=== PATIENT | female | born 1955 | race Caucasian/White ===

== ENCOUNTER 2023-04-03 15:21 | Outpatient (OUT) | payer SELFPAY ==
--- NOTE | 2023-04-03 15:25 | US_ITS ---
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 Lobe size: 5.2 x 1.7 x 1.8 cm LEFT LOBE: Markedly heterogeneous echotexture with stable 19 x 11 x 12 mm TR 3 nodule within superior pole. Lobe size: 5.5 x 1.3 x 1.8 cm ISTHMUS: Markedly heterogeneous echotexture. No nodules or abnormal thickening. Thickness: 2 mm US/US thyroid IMPRESSION: 1. Stable markedly heterogeneous echotexture of the thyroid gland and stable bilateral TR 3 nodules. TR3 (mildly suspicious): > 1.5 cm, follow-up ultrasound in 1, 3, and 5 years. > 2.5 cm, fine needle aspiration. Electronically authenticated by: NAYA GONZALEZ Date: 04/04/2023 09:06
[2023-04-03 16:58] LABS: Free T4 0.92 ng/dL (0.76-1.46)
[2023-04-03 17:05] LABS: Free T3 2.12 pg/mL (2.18-3.98); Thyroid Stimulating Hormone 5.255 uIU/mL (0.358-3.740)
== END 2023-04-03 15:22 | disposition home or self-care (01) ==
LOC: US 15:21
PROVIDERS: PCP Internal Medicine; Visit Provider Internal Medicine
DX: E04.9 Nontoxic goiter, unspecified (principal); E06.3 Autoimmune thyroiditis
CPT/HCPCS: 36415; 76536; 84439; 84443; 84481

== ENCOUNTER 2024-03-17 16:19 | Outpatient (OUT) | payer BC, SELFPAY ==
--- OUTSIDE RECORDS SUMMARY | 2024-03-17 16:28 | XMS_ITS | CCD ---
Author Organization [facility] Team Providers Care Inspector Fabric Name Role Phone Unavailable Primary Care Provider Unavailabl e WILSON, CHE Referring Unavailable WILSON, CHE Referring Unavailable WILSON, CHE Referring Unavailable WILSON, CHE Referring Unavailable MCKENNA RAYO Admitting Unavailable MCKENNA RAYO Attending Unavailable LISA, DR ZIYAD Swan Consulting Unavailable MILA, DR MCKEON Primary Care Unavailable MCKENNA RAYO Consulting Unavailable AMRIK MAR Admitting Unavailable AMRIK MAR Attending Unavailable DR LINDA ZARAGOZA Primary Care Unavailable MILA, DR MCKEON Consulting Unavailable LISA, DR ZIYAD Swan Consulting Unavailable AMRIK MAR Consulting Unavailable ZAID AHMAD Admitting Unavailable AMRIK MAR Consulting Unavailable AMRIK MAR Attending DR LINDA Roe Primary Care Unavailable Linda Zaragoza DO Primary Care Provider [phone] Medications Current Medications Medication Drug Class(es) Dates Sig (Normalized) Sig (Original) [id number] 200 actuat albuterol 0.09 mg/actuat metered dose inhaler (1 source) beta2-Adrenergic Agonist take 2 puff(s) by inhalation four times daily as needed albuterol (PROVENTIL HFA;VENTOLIN HFA) 90 mcg/actuation inhaler albuterol sulfate HFA 90 mcg/actuation aerosol inhaler Inhale 2 puffs 4 times a day by inhalation route as needed. Active alendronic acid 35 mg oral tablet (2 sources) Bisphosphonate Start: 03-07-2024 alendronate (FOSAMAX) 35 mg tablet Indications: Age-related osteoporosis without current pathological fracture TAKE 1 TABLET BY MOUTH ONCE WEEKLY ON AN EMPTY STOMACH BEFORE BREAKFAST. REMAIN UPRIGHT FOR 30 MINUTES AND TAKE WITH 8 OUNCES OF WATER 12 tablet 3 03/07/2024 Active Start: 03-30-2023 End: 03-07-2024 alendronate (FOSAMAX) 35 mg tablet Indications: Age-related osteoporosis without current pathological fracture TAKE 1 TABLET BY MOUTH ONCE WEEKLY ON AN EMPTY STOMACH BEFORE BREAKFAST. REMAIN UPRIGHT FOR 30 MINUTES AND TAKE WITH 8 OUNCES OF WATER 12 tablet 3 03/30/2023 03/07/2024 Discontinued atorvastatin 10 mg oral tablet (1 source) HMG-CoA Reductase Inhibitor Start: 03-28-2023 take 1 tablet by mouth once daily atorvastatin (LIPITOR) 10 mg tablet Indications: Hyperlipidemia, unspecified hyperlipidemia type TAKE ONE TABLET BY MOUTH DAILY 90 tablet 3 03/28/2023 Active cholecalciferol 0.05 mg oral capsule (1 source) Vitamin D cholecalciferol, vitamin D3, 2,000 units capsule daily. Active levothyroxine sodium 0.1 mg oral tablet (1 source) l-Thyroxine take 1 tablet by mouth in the morning levothyroxine (SYNTHROID, LEVOTHROID) 100 MCG tablet Take 1 tablet (100 mcg total) by mouth in the morning. Active Problems Active Problems Problem Classification Problem Date Documented Date Episodic/Chronic Disorders of lipid metabolism (1 source) Hyperlipidemia; Translations: [Hyperlipidemia, unspecified] Onset: 06-28-2020 03-13-2022 Chronic Esophageal disorders (1 source) Gastroesophageal reflux disease; Translations: [Gastro-esophageal reflux disease without esophagitis] Onset: 03-13-2022 03-13-2022 Chronic Menopausal disorders (1 source) Menopausal symptom; Translations: [Menopausal and female climacteric states] Onset: 03-13-2022 03-13-2022 Chronic Osteoporosis (1 source) Senile osteoporosis; Translations: [Age-related osteoporosis without current pathological fracture] 03-06-2024 Chronic Thyroid disorders (10 sources) Autoimmune thyroiditis; Translations: [Nontoxic goiter, unspecified] Onset: 09-02-2018 Chronic Past or Other Problems Problem Classification Problem Date Documented Da te Episodic/Chronic Mood disorders (1 source) Mood disorders Onset: 03-26-2023 03-26-2023 Other bone disease and musculoskeletal deformities (1 source) Other specified disorders of bone density and structure, right thigh; Translations: [OTH D/O BONE DEN STRUCT RT THIGH] Onset: 05-27-2021 Episodic Other screening for suspected conditions (not mental disorders or infectious disease) (4 sources) Encounter for screening mammogram for malignant neoplasm of breast; Translations: [ENC SCR MAMMO MALIG NEOPLASM BREAST] Onset: 05-18-2021 Episodic Residual codes; unclassified (1 source) Asymptomatic menopausal state; Translations: [ASYMPTOMATIC MENOPAUSAL STATE] Onset: 05-27-2021 Episodic Results Test Name Value Interpretation Reference Range Facility FREE T3on 03-21-2022 FREE T3 2.10 pg/mlL Critically low 2.18-3.[address] [facility] Comment on above: Performed By: #### F T3, TSH #### [facility] [address] [place] [address] Dr. Den Dumont FREE T4on 03-21-2022 Free T4 [Mass/Vol] 0.98 ng/dL Normal 0.76-1.46 [facility] Comment on above: Performed By: #### F T4 #### [facility] [address] [place] [address] Dr. Den Dumont TSHon 03-21-2022 TSH 6.304 uIU/mL Critically high 0.358-3.740 [facility] Comment on above: Performed By: #### F T3, TSH #### [facility] [address] [place] [address] Dr. Den Dumont COMPREHENSIVE METABOLIC PANE Sky 07-04-2021 Albumin [Mass/Vol] 4.5 g/dL Normal 3.6-5.1 [facility] Comment on above: Performed By: #### 7 600, 15029, 11070, 79861 #### [facility] [address], [address] [place], [place] [id number] Diet Kitchen Cook: Teo Daugherty MD Albumin/Globulin [Mass ratio] 1.4 {ratio} Normal 1.0-2.5 [facility] Comment on above: Performed By: #### 7 600, 46056, 79167, 85904 #### [facility] [address], [address] [place] [id number] Diet Kitchen Cook: Teo Daugherty MD ALP [Catalytic activity/Vol] 88 U/L Normal 37-153 [facility] Comment on above: Performed By: #### 7 600, 38383, 71945, 36034 #### [facility] [place] [address] Diet Kitchen Cook: Teo Daugherty MD ALT [Catalytic activity/Vol] 17 U/L Normal 6-29 [facility] Comment on above: Performed By: #### 7 600, 50123, 04984, 34314 #### [facility] [place] [address] Diet Kitchen Cook: Teo Daugherty MD AST [Catalytic activity/Vol] 22 U/L Normal 10-35 [facility] Comment on above: Performed By: #### 7 600, 06723, 21004, 69654 #### [facility] [place] [address] Diet Kitchen Cook: Teo Daugherty MD Bilirubin [Mass/Vol] 0.5 mg/dL Normal 0.2-1.2 [facility] Comment on above: Performed By: #### 7 600, 53988, 59381, 67509 #### [facility] [place] [address] Diet Kitchen Cook: Teo Daugherty MD BUN/CREATININE RATIO NOT APPLICABLE Normal 6-22 [facility] Comment on above: Performed By: #### 7 600, 70812, 64851, 64673 #### [facility] [place] [address] Diet Kitchen Cook: Teo Daugherty MD Calcium [Mass/Vol] 9.7 mg/dL Normal 8.6-10.4 [facility] Comment on above: Performed By: #### 7 600, 17875, 41454, 12471 #### [facility] [place] [address] Diet Kitchen Cook: Teo Daugherty MD Chloride [Moles/Vol] 104 mmol/L Normal 98-110 [facility] Comment on above: Performed By: #### 7 600, 43847, 66888, 39953 #### [facility] of [address], [address] [place] [address] Diet Kitchen Cook: Teo Daugherty MD CO2 [Moles/Vol] 29 mmol/L Normal 20-32 [facility] Comment on above: Performed By: #### 7 600, 83153, 25732, 40092 #### [facility] of [address], [address] [place] [address] Diet Kitchen Cook: Teo Daugherty MD Creatinine [Mass/Vol] 0.95 mg/dL Normal 0.50-0.99 [facility] Comment on above: Result Comment: For patients >49 years of age, the reference limit for Creatinine is approximately 13% higher for people identified as -Wallisian. Performed By: #### 7 600, 84822, 42552, 18348 #### [facility] [address], [address] [place] [address] Diet Kitchen Cook: Teo Daugherty MD eGFR NON-AFR. GUATEMALAN 63 mL/min/1.73m2 Normal > OR = 60 [facility] Comment on above: Performed By: #### 7 600, 73121, 81654, 54317 #### [facility] [place] [address] Diet Kitchen Cook: Teo Daugherty MD GFR/1.73 sq M.predicted among blacks MDRD (S/P/Bld) [Vol rate/Area] 73 mL/min/{1.73_m2} Normal > OR = 60 [facility] Comment on above: Performed By: #### 7 600, 30484, 16326, 71010 #### [facility] of [address], [address] [place] [address] Diet Kitchen Cook: Teo Daugherty MD Globulin (S) [Mass/Vol] 3.3 g/dL Normal 1.9-3.7 [facility] Comment on above: Performed By: #### 7 600, 34599, 12838, 86150 #### [facility] [place] [address] Diet Kitchen Cook: Teo Daugherty MD Glucose [Mass/Vol] 93 mg/dL Normal 65-139 [facility] Comment on above: Result Comment: Non-fasting reference interval Performed By: #### 7 600, 32397, 08774, 42841 #### [facility] of [address], [address] [place] [address] Diet Kitchen Cook: Teo Daugherty MD Potassium [Moles/Vol] 4.1 mmol/L Normal 3.5-5.3 [facility] Comment on above: Performed By: #### 7 600, 10490, 21613, 00780 #### [facility] of [address], [address] [place] [address] Diet Kitchen Cook: Teo Daugherty MD Protein [Mass/Vol] 7.8 g/dL Normal 6.1-8.1 [facility] Comment on above: Performed By: #### 7 600, 42010, 26417, 48399 #### [facility] of [address], [address] [place] [address] Diet Kitchen Cook: Teo Daugherty MD Sodium [Moles/Vol] 140 mmol/L Normal 135-146 [facility] Comment on above: Performed By: #### 7 600, 37944, 98268, 78355 #### [facility] [place] [address] Diet Kitchen Cook: Teo Daugherty MD Urea nitrogen [Mass/Vol] 24 mg/dL Normal 7-25 [facility] Comment on above: Performed By: #### 7 600, 33698, 81298, 26555 #### [facility] [place] [address] Diet Kitchen Cook: Teo Daugherty MD LIPID PANEL, [facility] Cholesterol [Mass/Vol] 151 mg/dL Normal <200 [facility] Comment on above: Order Comment: FASTI NG:NO FASTING: NO Performed By: #### 7 600, 05913, 07680, 07281 #### [facility] of [address], [address] [place] [address] Diet Kitchen Cook: Teo Daugherty MD Cholesterol in HDL [Mass/Vol] 77 mg/dL Normal > OR = 50 [facility] Comment on above: Order Comment: FASTI NG:NO FASTING: NO Performed By: #### 7 600, 81766, 18247, 89702 #### [facility] [address], [address] [place] [address] Diet Kitchen Cook: Teo Daugherty MD Cholesterol in LDL [Mass/Vol] 56 mg/dL Normal [facility] Comment on above: Order Comment: FASTI NG:NO FASTING: NO Result Comment: Refe rence range: <100 Desirable range <100 mg/dL for primary prevention; <70 mg/dL for patients with CHD or diabetic patients with > or = 2 CHD risk factors. LDL-C is now calculated using the Lauren calculation, which is a validated novel method providing better accuracy than the Friedewald equation in the estimation of LDL-C. Bradley SS et al. SOHAIL. 2013;310(19): 1092-3319 (http://education.[employer].TiqIQ/faq/LRN511) Performed By: #### 7 600, 45525, 99447, 12819 #### [facility] [address], [address] [place] [address] Diet Kitchen Cook: Teo Daugherty MD Cholesterol.total/C holesterol in HDL [Mass ratio] 2.0 {ratio} Normal <5.0 [facility] Comment on above: Order Comment: FASTI NG:NO FASTING: NO Performed By: #### 7 600, 77392, 55543, 63983 #### [facility] [address], [address] [place] [address] Diet Kitchen Cook: Teo Daugherty MD NON HDL CHOLESTEROL 74 mg/dL (calc) Normal <130 [facility] Comment on above: Order Comment: FASTI NG:NO FASTING: NO Result Comment: For patients with diabetes plus 1 major ASCVD risk factor, treating to a non-HDL-C goal of <100 mg/dL (LDL-C of <70 mg/dL) is considered a therapeutic option. Performed By: #### 7 600, 32238, 04258, 76005 #### [facility] [address], [address] [place] [address] Diet Kitchen Cook: Teo Daugherty MD Triglyceride [Mass/Vol] 93 mg/dL Normal <150 [facility] Comment on above: Order Comment: FASTI NG:NO FASTING: NO Performed By: #### 7 600, 23820, 29340, 00729 #### [facility] [address], [address] [place] [address] Diet Kitchen Cook: Teo Daugherty MD TSH+FREE T4on 07-04-2021 Free T4 [Mass/Vol] 1.2 ng/dL Normal 0.8-1.8 [facility] Comment on above: Performed By: #### 7 600, 19146, 09506, 58141 #### [facility] [address], [address] [place] [address] Diet Kitchen Cook: Teo Daugherty MD TSH Qn 5.50 m[IU]/L High 0.40-4.50 [facility] Comment on above: Performed By: #### 7 600, 49755, 74616, 06332 #### [facility] [place] [address] Diet Kitchen Cook: Teo Daugherty MD VITAMIN D,25-OH,TOTAL,IAon 0 07-04-2021 VITAMIN D,25-OH,TOTAL,IA 30 ng/mL Normal 30-100 [facility] Comment on above: Result Comment: Geno min D Status 25-OH Vitamin D: Deficiency: <20 ng/mL Insufficiency: 20 - 29 ng/mL Optimal: > or = 30 ng/mL For 25-OH Vitamin D testing on patients on D2-supplementation and patients for whom quantitation of D2 and D3 fractions is required, the QuestAssureD(TM) 25-OH VIT D, (D2,D3), LC/MS/MS is recommended: order code [id number] (patients >2yrs). See Note 1 Note 1 For additional information, please refer to http://education.[employer].TiqIQ/faq/POM843 (This link is being provided for informational/ educational purposes only.) Performed By: #### 7 600, 53222, 36165, 20988 #### [facility] [address] [facility], [address] [place] [address] Diet Kitchen Cook: Teo Daugherty MD MG MAMM SCREEN 3D STEPH CADon 05-18-2021 MG MAMM SCREEN 3D STEPH CAD Patient: JOLEEN AHLL Exam Date: 05/18/2021 : 1955 Gender:F Ordering : DR. MCKENNA RAYO . Admission #: [id number] Family : DR LINDA ZARAGOZA Order #: [id number] CLICK HERE TO VIEW EXAM RADIOLOGY REPORT PROCEDURE: MAMMOGRAM SCREENING 3D BILATERAL CAD COMPARISON: MG MAMM SCREEN STEPH W CAD, 05/13/2019. MG MAMM SCREEN STEPH W CAD, 05/16/2020. INDICATIONS: Screening mammography Calculator Name NCI Breast Cancer Risk Assessment Tool 5 Year Breast Cancer Risk 2.30% Lifetime Breast Cancer Risk 8.60% Personal Breast Cancer No Personal Ovarian Cancer No Treatments None Family Cancers None LOCATION: [facility] BREAST COMPOSITION: Almost entirely fatty. FINDINGS: DIAGNOSTIC CATEGORY 1--NEGATIVE. RIGHT BREAST: No significant suspicious finding. No significant change has occurred. LEFT BREAST: No significant suspicious finding. No significant change has occurred. RECOMMENDATIONS: ROUTINE MAMMOGRAM AND CLINICAL EVALUATION IN 12 MONTHS. PLEASE NOTE: A NORMAL MAMMOGRAM DOES NOT EXCLUDE THE POSSIBILITY OF BREAST CANCER. A CLINICALLY SUSPICIOUS PALPABLE LUMP SHOULD BE BIOPSIED. Dictated by: Ziyad Armenta M.D. on 05/18/2021 at 15:03 Approved by: Ziyad Armenta M.D. on 05/18/2021 at 15:16 Normal [facility] XR DEXA BONE DENSITYon 05-18 XR DEXA BONE DENSITY EXAMINATION: XR DEXA BONE DENSITY, 05/18/2021 7:53 AM EST HISTORY: Menopause present COMPARISON: DEXA bone densitometry 05/13/2019 TECHNIQUE: Dual-energy X-ray absorptiometry (DEXA) bone density study performed for the axial skeleton. FINDINGS: SPINE ANALYSIS: Average bone mineral density is 1.115 g/cm2. T-score (standard deviation relative to young adult mean): -0.7 . +12.8% change since prior study. HIP ANALYSIS: Lowest bone mineral density is within the right femoral trochanter, 0.589 g/cm2. T-score (standard deviation relative to young adult mean): -2.3 . +8.2% change since prior study. IMPRESSION: World Asael Organization Classification: Osteopenia - Moderate Fracture Risk Electronically authenticated by: ZIYAD ARMENTA Date: 2021-05-18 08:21 Normal [facility] FREE T3on 04-09-2021 FREE T3 2.44 pg/mlL Critically low 2.77-5.27 [facility] Comment on above: Performed By: #### F T3, TSH #### [facility] [address] [place] [address] [address] Den Dumont FREE T4on 04-09-2021 Free T4 [Mass/Vol] 0.79 ng/dL Normal 0.78-2.19 [facility] Comment on above: Performed By: #### F T4 #### [facility] [address] [place] [address] [address] Den Dumont TSHon 04-09-2021 TSH 8.919 uIU/mL Critically high 0.470-4.680 [facility] Comment on above: Performed By: #### F T3, TSH #### [facility] [address] [place] [address] [address] Den Dumont TSH RANGE SEE BELOW Normal [facility] Comment on above: Result Comment: <0.3 4 UIU/ml HYPERTHYROID 0.34-5.60 UIU/ml EUTHYROID >5.60 UIU/ml HYPOTHYROID Performed By: #### F T3, TSH #### [facility] [address] [place] [address] Dr. Den Dumont US THYROIDon 04-09-2021 US THYROID EXAMINATION: US THYROID HISTORY: Simple goiter COMPARISON: Ultrasound thyroid 02/23/2019 FINDINGS: RIGHT LOBE: Hypervascular markedly heterogeneous thyroid lobe. On the anterior margin is a 19 x 5 x 9 mm TR 3 nodule which does not convincingly represent a new nodule, likely better definition of the heterogeneous area. Lobe size: 5.0 x 1.8 x 2.1 cm LEFT LOBE: Hypervascular markedly heterogeneous thyroid lobe. Stable 16 x 10 x 12 mm TR 3 nodule. Lobe size: 4.6 x 1.2 x 1.6 cm ISTHMUS: Normal size and echotexture. Thickness: 2 mm IMPRESSION: 1. Grossly stable markedly heterogeneous thyroid gland with grossly stable bilateral TR 3 nodules. TR 3: The [employer] TI-RADS committee's white paper recommendations for thyroid lesions classified as TR3 (mildly suspicious) are listed below: > 1.5 cm. Follow-up ultrasound in 1, 3, and 5 years. > 2.5 cm. FNA. J. Am Cornell Radiol 2017;14:587-595. Electronically authenticated by: ZIYAD ARMENTA Date: 2021-04-09 16:19 Normal [facility] [id number] 04-30-2020 SARS-CoV-2 Detected Abnormal Not Detected [facility] Comment on above: Result Comment: (NOT E) Testing was performed using the Aptima SARS-CoV-2 assay. This nucleic acid amplification test was developed and its performance characteristics determined by [employer]. Nucleic acid amplification tests include PCR and TMA. This test has not been FDA cleared or approved. This test has been authorized by FDA under an Emergency Use Authorization (EUA). This test is only authorized for the duration of time the declaration that circumstances exist justifying the authorization of the emergency use of in vitro diagnostic tests for detection of SARS-CoV-2 virus and/or diagnosis of COVID-19 infection under section 564(b)(1) of the Act, 21 U.S.C. 360bbb-3(b) (1), unless the authorization is terminated or revoked sooner. When diagnostic testing is negative, the possibility of a false negative result should be considered in the context of a patient's recent exposures and the presence of clinical signs and symptoms consistent with COVID-19. An individual without symptoms of COVID- 19 and who is not shedding SARS-CoV-2 virus would expect to have a negative (not detected) result in this assay. Performed At: = [facility] [address] [id number] Adrián Paige MD Ph:[phone] Performed By: #### A COV #### [facility] [address] [place] [address] Chute Tender: Xander Simental MD [id number] 03-18-2020 SARS-CoV-2 Not Detected Normal Not Detected [facility] Comment on above: Result Comment: (NOT E) This nucleic acid amplification test was developed and its performance characteristics determined by [employer]. Nucleic acid amplification tests include PCR and TMA. This test has not been FDA cleared or approved. This test has been authorized by FDA under an Emergency Use Authorization (EUA). This test is only authorized for the duration of time the declaration that circumstances exist justifying the authorization of the emergency use of in vitro diagnostic tests for detection of SARS-CoV-2 virus and/or diagnosis of COVID-19 infection under section 564(b)(1) of the Act, 21 U.S.C. 360bbb-3(b) (1), unless the authorization is terminated or revoked sooner. When diagnostic testing is negative, the possibility of a false negative result should be considered in the context of a patient's recent exposures and the presence of clinical signs and symptoms consistent with COVID-19. An individual without symptoms of COVID- 19 and who is not shedding SARS-CoV-2 virus would expect to have a negative (not detected) result in this assay. Performed At: [facility] [address] [place], [place] [id number] Cristal William [facility] Ph:[phone] Performed By: #### A COV #### [facility] [address] [place] [address] Chute Tender: Xander Simental MD [id number] 03-06-2020 SARS-CoV-2 Not Detected Normal Not Detected [facility] Comment on above: Result Comment: (NOT E) This nucleic acid amplification test was developed and its performance characteristics determined by [employer]. Nucleic acid amplification tests include PCR and TMA. This test has not been FDA cleared or approved. This test has been authorized by FDA under an Emergency Use Authorization (EUA). This test is only authorized for the duration of time the declaration that circumstances exist justifying the authorization of the emergency use of in vitro diagnostic tests for detection of SARS-CoV-2 virus and/or diagnosis of COVID-19 infection under section 564(b)(1) of the Act, 21 U.S.C. 360bbb-3(b) (1), unless the authorization is terminated or revoked sooner. When diagnostic testing is negative, the possibility of a false negative result should be considered in the context of a patient's recent exposures and the presence of clinical signs and symptoms consistent with COVID-19. An individual without symptoms of COVID- 19 and who is not shedding SARS-CoV-2 virus would expect to have a negative (not detected) result in this assay. Performed At: [facility] [address] [facility] [place] [id number] Miguelito Luna MD Ph:[phone] Performed By: #### A COV #### [facility] [address] [place], [place] [id number] Chute Tender: Xander Simental MD Encounters Encounter Date Encounter Type Care Provider Facility Start: 03-06-2024 End: 03-07-2024 Refill Linda Zaragoza DO Work Phone: [facility] Comment on above: Age-related osteopor osis without current pathological fracture Start: 03-21-2022 End: 03-22-2022 ambulatory [facility] Facility:[facility]1 Start: 05-18-2021 End: 05-19-2021 ambulatory MCKENNACheryl RAYO Facility:[facility] Start: 04-09-2021 End: 04-10-2021 ambulatory [facility] Facility:[facility] Start: 04-27-2020 End: 04-28-2020 Patient encounter procedure RAYMOND WILSON [facility] Start: 04-27-2020 End: 04-27-2020 Subsequent hospital visit by physician [facility] Start: 04-12-2020 End: 04-13-2020 Patient encounter procedure RAYMOND WILSON [facility] Start: 04-12-2020 End: 04-12-2020 Subsequent hospital visit by physician [facility] Start: 03-15-2020 End: 03-15-2020 Patient encounter procedure RAYMOND WILSON [facility] Start: 03-14-2020 End: 03-14-2020 Subsequent hospital visit by physician [facility] Start: 03-03-2020 End: 03-04-2020 Patient encounter procedure RAYMOND WILSON [facility] Start: 03-03-2020 End: 03-03-2020 Subsequent hospital visit by physician [facility] Procedures Date Procedure Procedure Detail Performing Clinician Start: 03-26-2023 Adult depression screening assessment Linda Zaragoza DO Work Phone: Start: 04-27-2020 COVID-19 AMBULATORY EB WILSON Start: 04-12-2020 COVID-19 AMBULATORY EB S KATIE Start: 03-03-2020 COVID-19 AMBULATORY EB S KAITE Plan of Treatment Date Care Activity Detail Author Start: 11-07-2025 DTaP,Tdap and Td Vaccines (2 - Td or Tdap) DTaP,Tdap and Td Vaccines (2 - Td or Tdap) [facility] Start: 03-26-2024 Adult BMI Screening Adult BMI Screen ing [facility] Start: 03-26-2024 Depression Screening Depression Scre ening [facility] Start: 03-26-2024 Fall Risk Screening Fall Risk Screen ing [facility] Start: 03-26-2024 Tobacco Screening Tobacco Screening [facility] Start: 01-25-2024 COVID-19 Vaccine ( season) COVID-19 Vaccine ( season) [facility] Start: 01-25-2024 Influenza vaccination Influenza Vacc ine [facility] Start: 01-25-2020 Influenza vaccination Flu vaccine (# 1) [place] Start: 09-24-2005 Screening for malign ant neoplasm of breast Breast cancer screen [place] Start: 09-24-2005 Screening for malign ant neoplasm of colon Colon cancer screen [place] Start: 09-24-2005 Shingles Vaccine (1 of 2) Shingles Vaccine (1 of 2) [place] Start: 1995 Lipid panel Lipid screen [place], [place] Start: 09-24-1976 Screening for malign ant neoplasm of cervix Cervical cancer [place] Start: 09-24-1974 DTaP/Tdap/Td vaccine (1 - Tdap) DTaP/Tdap/Td vaccine (1 - Tdap) [place] Start: 09-24-1973 Adult BMI Follow Up Plan Adult BMI Follow Up Plan [facility] Start: 09-24-1970 [facility] [place] [place] Start: 1955 Hepatitis C screening Hepatitis C sc [place]en [place] End: 03-03-2020 Covid-19 Ambulatory Covid-19 Ambulatory Lab Routine Once for 1 Occurrences starting 03/03/2020 until 03/03/2020 [place] Comment on above: Once for 1 Occurrenc es starting 03/03/2020 until 03/03/2020 Covid-19 Ambulatory [place] End: 04-12-2020 Covid-19 Ambulatory Covid-19 Ambulatory Lab Routine Once for 1 Occurrences starting 04/12/2020 until 04/12/2020 [place] Comment on above: Once for 1 Occurrenc es starting 04/12/2020 until 04/12/2020 End: 04-27-2020 Covid-19 Ambulatory Covid-19 Ambulatory Lab Routine Once for 1 Occurrences starting 04/27/2020 until 04/27/2020 [place] Comment on above: Once for 1 Occurrenc es starting 04/27/2020 until 04/27/2020 Immunizations Immunization Date Immunization Notes Care Provider Dick ortega 01-09-2023 influenza virus vaccine, unspecified formulation Linda Shaniquahas DO Work Phone: [facility] 01-23-2022 Influenza, High-dose , Quadrivalent Linda Shaniquahas DO Work Phone: [facility] 10-10-2021 Pneumococcal Conjuga te 20-valent Linda Mcgovernhas DO Work Phone: [facility] 02-28-2021 COVID-19, mRNA, LNP- S, PF, 100mcg/0.5mL Dose Linda Shaniquahas DO Work Phone: [facility] 01-18-2021 Influenza, High-dose , Quadrivalent Linda Shaniquahas DO Work Phone: [facility] 07-02-2019 zoster vaccine recombinant Linda Zaragoza DO Work Phone: [facility] 03-29-2019 zoster vaccine recombinant Linda Zaragoza DO Work Phone: [facility] 03-23-2019 influenza, high dose seasonal, preservative-free Linda Zaragoza DO Work Phone: [facility] 03-03-2019 Seasonal, quadrivale nt, recombinant, injectable influenza vaccine, preservative free Linda Zaragoza DO Work Phone: [facility] 02-23-2018 influenza, injectabl e, quadrivalent, contains preservative Linda Martinezs DO Work Phone: [facility] 02-23-2017 influenza, injectabl e, quadrivalent, contains preservative Linda Martinezs DO Work Phone: [facility] 03-09-2016 influenza A monovale nt (H5N1), adjuvanted, National stockpile 2012 Linda Martinezs DO Work Phone: [facility] 11-12-2015 zoster vaccine, live Linda hauser DO Work Phone: [facility] 11-08-2015 tetanus toxoid, redu francisca diphtheria toxoid, and acellular pertussis vaccine, adsorbed Linda Zaragoza DO Work Phone: [facility] Payers Date Payer Category Payer Unknown YANE YOST SS (PPO) [id number] 2022-Present [phone] [address] [place] [address] [id number] 2014 Unknown [id number] 1959 Private Health Insurance [id number] 1959 Unknown [id number] 1959 Unknown [id number] 1955 Unknown [id number] 175 1955 Unknown [id number] 175 1955 Unknown [id number]. 175 1955 Unknown [id number] 175 1955 Unknown [id number] 1955 Unknown [id number]. 593 1955 Unknown [id number]. 593 Social History Date Type Detail Facility Tobacco smoking status NHIS Unknown if ever smoked [place], [place] Start: 1955 Sex Assigned At Not on file [place] Start: 03-20-2022 Tobacco smoking status DEIS Never smoked tobacco [facility] Start: 03-20-2022 Tobacco use and exposure Smokeless tobacco non-user [facility] Start: 03-26-2023 Alcoholic beverage intake Current drinker of alcohol (finding) [facility] Start: 11-04-2018 End: 03-26-2023 History of Social function [facility] Start: 11-04-2018 End: 03-26-2023 Tobacco use panel [facility] Adolescent depressio n screening assessment 0 [facility] Start: 03-26-2023 Alcohol Comment Occasional [facility] NEGATED: Highlighted rowStart: NINF History of tobacco use Passive smoker [facility] Medical Equipment Procedure Code Equipment Code Equipment Origin al Text Equipment Identifier Dates Lens Iol Ultrase rt 21.0d - [id number] - [id number] Start: 04-05-2021 Lens Iol Ultrase rt 21.5d - [id number] - [id number] Start: 04-17-2021 Evaluation note Note Date & Type Note Facility Evaluation note Diagnosis Age-related osteoporosis without current pathological fracture documented in this encounter [facility] Instructions Note Date & Type Note Facility Instructions Not on filedocumented in this en counter [facility] Summary Purpose Family History No Family History Records FoundNo Family History Records FoundNo Family History Records Found Advance Directives No Advanced Directives Records FoundNo Advanced Directives Records FoundNo Advanced Directives Records Found Additional Source Comments INFORMATION SOURCE (unrecogn ized section and content) DATE CREATED AUTHOR 04/30/2020 [facility] DATE CREATED AUTHOR AUTHOR'S ORGANIZ ATION 07/04/2021 [facility] DATE CREATED AUTHOR AUTHOR'S ORGANIZ ATION 03/24/2022 [facility] Reason for Visit (unrecogniz ed section and content) Reason Comments Med Refill Care Teams (unrecognized sec tion and content) Inspector Fabric Relationship Specialty Start Date End Date Linda Zaragoza DO [address] [place] [address] PCP - General Internal Medicine 04/05/21 FOR RECORDS PERTAINING TO PATIENTS WHO ARE OR HAVE BEEN ENROLLED IN A CHEMICAL DEPENDENCY/SUBSTANCEABUSE PROGRAM, SOME INFORMATION MAY BE OMITTED. This clinical summary was aggregated from multiple sources. Caution should be exercised in using it in the provision of clinical care. This summary normalizes information from multiple sources, and as a consequence, information in this document may materially change the coding, format and clinical context of patient data. In addition, data may be omitted in some cases. CLINICAL DECISIONS SHOULD BE BASED ON THE PRIMARY CLINICAL RECORDS. [employer] provides no warranty or guarantee of the accuracy or completeness of information in this document.
[2024-03-17 17:39] LABS: Free T3 2.22 pg/mL (2.18-3.98); Thyroid Stimulating Hormone 6.719 uIU/mL (0.358-3.740)
[2024-03-17 17:59] LABS: Free T4 0.89 ng/dL (0.76-1.46)
== END 2024-03-17 16:20 | disposition home or self-care (01) ==
PROVIDERS: PCP Internal Medicine; Visit Provider Internal Medicine
DX: E04.9 Nontoxic goiter, unspecified (principal); E06.3 Autoimmune thyroiditis; E04.2 Nontoxic multinodular goiter; E55.9 Vitamin D deficiency, unspecified
CPT/HCPCS: 36415; 82306; 84439; 84443; 84481

== ENCOUNTER 2025-03-30 16:17 | Outpatient (OUT) | payer BC, SELFPAY ==
--- OUTSIDE RECORDS SUMMARY | 2025-03-30 16:23 | XMS_ITS | Clinical Summary ---
Author Organization [facility] Address [address] [place] [address] Care Team Providers Care Veterinary Dentist Name Role Phone Gutierrez Vergara MD Primary Care Provider [phone] Allergies No known active allergies Medications MedicationSigDispense QuantityRefillsLast FilledStart DateEnd DateStatus levothyroxine (Tirosint) 88 MCG capsule Take by mouth Daily before mealsActive levothyroxine (Synthroid, Levoxyl) 88 MCG tablet Indications:Autoimmune thyroiditisTake 1 tablet (88 mcg) by mouth in the morning. on an empty stomach. 360 tablet 5Active Active Problems ProblemNoted DateDiagnosed DateNontoxic goiter, wyqrprzxpqx71/31/2024utoimmune zdjgbggvdyy05/31/2024Nontoxic multinodular tzrxgc5603/25/2024 Family History Medical HistoryRelationNameCommentsHypertensionMotherHyperthyroidismMother RelationNameStatusCommentsBrotherx 1AliveFatherDeceasedMotherAliveSisterx 2Alive Social History Tobacco UseTypesPacks/DayYears UsedDateSmoking Tobacco: NeverSmokeless Tobacco: Never Tobacco Cessation:Counseling Given: Not Answered Alcohol UseStandard Drinks/WeekCommentsNever0 (1 standard drink = 0.6 oz pure alcohol)CommentsUnknownSex and Gender InformationValueDate RecordedSex Assigned at BirthNot on fileLegal RebDktmfa12/04/2024 9:16 AM EDTGender Identity Not on fileSexual OrientationNot on file Last Filed Vital Signs Vital SignReadingTime TakenCommentsBlood Xqgnotgf388/7204/12/2024 9:04 AM EST Haccq736304/12/2024 9:04 AM ESTTemperature--Respiratory Eixf161406/12/2023 9:04 AM ESTOxygen Omtbftzzqi61%04/14/2023 8:55 AM ESTInhaled Oxygen Concentration-- Jeyvav58.6 kg (182 lb)04/12/2024 9:04 AM YVJSmivoq837.6 cm (5' 6 )04/12/2024 9:04 AM ESTBody Mass Index29.38106/12/2023 9:04 AM EST Plan of Treatment DateTypeDepartmentCare Team (Latest Contact Info)Mizpbxosxde50/17/2025 9:00 AM ESTOffice Visit [facility] [address] [place] [address] Kranthi Lacy MD [address] [place] [address] Health MaintenanceDue DateLast DoneCommentsCT Ijskdoweidbr61/02/1956olonoscopy 1955olorectal Cancer Nzgjbmwjp77/02/1956FIT-DNA1955FIT1955 FOBT1955Aopejohlqyzbo62/02/5466Fbaxskhdh39/02/1996COVID-19 Vaccine ( season), 02/28/2021Influenza Vaccine (#1)2025 02/08/2024, 01/09/2023, 01/23/2022, Additional history existsPneumococcal Vaccine: 65+ IamumTjqwlkbwy16/18/2022 Insurance Care Teams Team MemberRelationshipSpecialtyStart DateEnd Date Gutierrez Vergara MD PCP - GeneralInternal Nnkuwrxr14/13/24
--- OUTSIDE RECORDS SUMMARY | 2025-03-30 16:23 | XMS_ITS | Encounter Summary ---
Author Organization [facility] tem Address [id number] [address] [place] [address] Care Team Providers Care Machine Stoppage Frequency Checker Name Role Phone Gutierrez Vergara DO Primary Care Provider [phone] Reason for Visit * ReasonCommentsMed Refill Encounter Details DateTypeDepartmentCare Team (Latest Contact Info)Vhlserqyule29/29/2025Refill [facility] [address] [place] [phone] Gutierrez Vergara DO [address] [place] [address] Hyperlipidemia, unspecified hyperlipidemia type Social History Tobacco UseTypesPacks/DayYears UsedDateSmoking Tobacco: NeverPassive Smoke Exposure: NeverSmokeless Tobacco: NeverAlcohol UseStandard Drinks/WeekComments Yes0 (1 standard drink = 0.6 oz pure alcohol)OccasionalPHQ-2AnswerDate Recorded Total Gsnxs233/30/2024ChildcareAnswerDate VazjqunsBlcofmrrjRyncjrf44/12/2019 EmploymentAnswerDate LxxufdfaIknzwbbrdvYvjkmef37/12/2019Hunger ScreeningAnswer Date RecordedWithin the past 12 months we worried whether our food would run out before we got money to buy more.Never True05/24/2024Within the past 12 months the food we bought just didn't last and we didn't have money to get more.Never True4CommentsNoSex and Gender InformationValueDate RecordedSex Assigned at BirthNot on fileLegal DiuRuxitk79/06/2015 11:33 AM EDTGender IdentityNot on fileSexual OrientationNot on filedocumented as of this encounter Plan of Treatment DateTypeDepartmentCare Team (Latest Contact Info)Kocweoerief34/15/2025 10:30 AM ESTAppointment [facility] [address] [place] [phone] 04/09/2025 11:30 AM ESTAppointment [facility] [address] [place] [phone] documented as of this encounter Visit Diagnoses Diagnosis Hyperlipidemia, unspecified hyperlipidemia type documented in this encounter Additional Health Concerns AssessmentNoted TimePHQ-9 Depression Total Score: 2:01 PM EST documented as of this encounter Care Teams Team MemberRelationshipSpecialtyStart DateEnd Date Gutierrez Vergara DO [address] [place] [address] PCP - GeneralInternal Xahbfbgc45/11/21documented as of this encounter
--- OUTSIDE RECORDS SUMMARY | 2025-03-30 16:23 | XMS_ITS | Continuity of Care Document ---
Author [facility] Address [address] [place] [address] Problems Unknown Problems Results Test Result Date/Time Value / Unit Interp. Refere nce Range SARS-CoV-2 (COVID-19), RT-PC R/TMA[[id number]] Collected: 04/02/2021 03:35 PM Specimen Received: 04/03/2021 07:04 PM Source: [facility] SARS-CoV-2 INTERPRETATION [[id number]] 04/04/2021 01:58 A M Negative See QsalHMFY-EoC-1 RNA NOT DETECTEDNegative results do not preclude SARS-CoV-2 infection and should notbe used as the sole basis for patient management decisions. Negativeresults must be combined with clinical observations, patient history,and epidemiological information. Optimum specimen types and timingfor peak viral levels during infections caused by SARS-CoV-2 have notbeen determined. Collection of multiple specimens or types ofspecimens may be necessary to detect virus. Improper specimencollectionand handling, sequence variability under primers/probes,or organism present below the limit of detec tion may lead to falsenegative results. Positive and negative predictive values oftesting are highly dependent on prevalence. False negative testresults are more likely when prevalence is high.SOURCE [[id number]]04/04/2021 01:58 AM NASOPHARYNGEALNote: Methodology is Tutu Juwan Real-Time RT-PCR. The expected result or reference range is NEGATIVE (Not Detected). For more information regarding COVID-19 testing to include clinicalinformation, methodology detail, intended use, FDA authorization andrecommended fact sheets for patients or healthcare providers, see [employer] Announcement: SARS-CoV-2 (COVID-19) by NAAT at URL below (note,fact sheets are provided by method given in report:[email or web address]/ Alternatively, see downloadable PDF fact sheet at:[email or web address] Allergies, adverse reactions, alerts No known allergies and adverse reactions Medications No administered medications reported Vital Signs No vital signs reported Social History No smoking Hx information available
--- OUTSIDE RECORDS SUMMARY | 2025-03-30 16:23 | XMS_ITS | Clinical Summary ---
Author Organization [employer] [facility] tem Address [id number] [address] [place] [address] Care Team Providers Care Android Architect Name Role Phone Gutierrez Vergara Primary Care Provider [phone] Allergies No known active allergies Medications MedicationSigDispense QuantityRefillsLast FilledStart DateEnd DateStatus levothyroxine (SYNTHROID, LEVOTHROID) 100 MCG tablet Take 1 tablet (100 mcg total) by mouth in the morning.Active cholecalciferol, vitamin D3, 2,000 units capsule daily.Active albuterol (PROVENTIL HFA;VENTOLIN HFA) 90 mcg/actuation inhaler albuterol sulfate HFA 90 mcg/actuation aerosol inhaler Inhale 2 puffs 4 times a day by inhalation route as needed.Active alendronate (FOSAMAX) 35 mg tablet Indications:Age-related osteoporosis without current pathological fractureTAKE 1 TABLET BY MOUTH ONCE WEEKLY ON AN EMPTY STOMACH BEFORE BREAKFAST. REMAIN UPRIGHT FOR 30 MINUTES AND TAKE WITH 8 OUNCES OF WATER 12 tablet 5Active atorvastatin (LIPITOR) 10 mg tablet Indications:Hyperlipidemia, unspecified hyperlipidemia typeTAKE 1 TABLET BY MOUTH DAILY 90 tablet 1105Active atorvastatin (LIPITOR) 10 mg tablet Indications:Hyperlipidemia, unspecified hyperlipidemia typeTAKE 1 TABLET BY MOUTH DAILY 90 tablet Discontinued Active Problems ProblemNoted DateDiagnosed DateMenopausal glwxqgn3203/13/2022Gastroesophageal reflux nsouvnb7803/13/20229491Rdtbfmczuehtwa57/03/2021Hashimoto's thyroiditis 09/02/2018 Encounters DateTypeDepartmentCare TvqiZhflnrtnhtd93/29/2025Refill [facility] - Family Medicine [address] [place] [address] Gutierrez Vergara DO Hyperlipidemia, unspecified hyperlipidemia type02/18/2025Refill [facility] - [facility] [address] [place] [address] Gutierrez Vergara DO Age-related osteoporosis without current pathological fracturefrom Last 3 Months Immunizations ImmunizationAdministration DatesNext DueCOVID-19, mRNA, LNP-S, PF, 100mcg/0.5mL Dose02/28/2021Influenza A Monovalent (H5N1), Adjuvanted-Influenza High Dose Preservative Free IM03/23/2019Influenza, High-dose, Quadrivalent 01/23/2022,01/18/2021Influenza, Injectable, Zeegksxuujug56/01/2018,02/23/2017 Influenza, Recombinant, Quadrivalent, Injectable, Wafqupw0303/03/2019Pneumococcal Conjugate 20-yywomx1910/10/2021Tdap11/08/2015Zoster Live11/12/2015Zoster Vaccine Cuhdzgirezy87/07/2020,03/29/2019 Family History Medical HistoryRelationNameCommentsAnuerysmFatherHeart diseaseMother HypothyroidismMotherHypothyroidismSisterRelationNameStatusCommentsFatherDeceased MotherAliveSisterAlive Social History Tobacco UseTypesPacks/DayYears UsedDateSmoking Tobacco: NeverPassive Smoke Exposure: NeverSmokeless Tobacco: NeverAlcohol UseStandard Drinks/WeekComments Yes0 (1 standard drink = 0.6 oz pure alcohol)OccasionalPHQ-2AnswerDate Recorded Total Hndwb301/30/2024ChildcareAnswerDate EfvnmnizNfotfcsioVwtkljb11/12/2019 EmploymentAnswerDate LrqebbgaGxdblyzbmrGtrzavb91/12/2019Hunger ScreeningAnswer Date RecordedWithin the past 12 months we worried whether our food would run out before we got money to buy more.Never True05/24/2024Within the past 12 months the food we bought just didn't last and we didn't have money to get more.Never True05/24/2024CommentsNoSex and Gender InformationValueDate RecordedSex Assigned at BirthNot on fileLegal CqvYdxcuh38/06/2015 11:33 AM EDTGender IdentityNot on fileSexual OrientationNot on file Last Filed Vital Signs Vital SignReadingTime TakenCommentsBlood Gwzbtkqj748/7605/24/2024 1:42 PM EST Meazv376105/24/2024 1:42 PM NPXXanroqcxucj93.6 ??C (97.8 ??F)05/24/2024 1:42 PM ESTRespiratory Mblq0517 1:42 PM ESTOxygen Lsosbtvetl78%05/24/2024 1:42 PM ESTInhaled Oxygen Concentration--Kfgrsu50.6 kg (182 lb)05/24/2024 1:42 PM EST Pmbsly727.5 cm (5' 5.16 )05/24/2024 1:42 PM ESTBody Mass Index30.141 1:42 PM EST Plan of Treatment DateTypeDepartmentCare Team (Latest Contact Info)Mbjqizpacmp99/15/2025 10:30 AM ESTAppointment [facility] [address] [place] [phone] 04/09/2025 11:30 AM ESTAppointment [facility] - [facility] [address] [place] [address] Health MaintenanceDue DateLast DoneCommentsAdult BMI Follow Up Plan09/24/1973 COVID-19 Vaccine ( season)5105/28/2020, 02/28/2021Influenza Xvkhgcc93/, 01/09/2023, 01/23/2022, Additional history exists Adult BMI Ydddoyafw77epression Kouucsuyi45 Fall Risk Oxoonrdfq62Tobacco Uikefeghy76 DTaP,Tdap and Td Vaccines (2 - Td or Tdap)Zoster (Shingles) LwxlqctWwnbvafpk29/07/2020, 03/29/2019, 11/12/2015RSV ( or age 60+ yrs) Jmfyinoll42/12/2023 Medical Devices ImplantedTypeAreaManufacturerDevice IdentifierShelf Expiration DateModel / Serial / LotLens Iol Ultrasert 21.0d - [id number] - [id number] Implanted:Qty: 1 on 04/05/2021 by Felicia Martinez MD at [facility]: [employer]03/[id number] 21.0 / [id number] / Lens Iol Ultrasert 21.5d - [id number] - [id number] Implanted:Qty: 1 [facility]17/[facility] [employer]07/[id number] 21.5 / [id number] / NA Insurance Care Teams Team MemberRelationshipSpecialtyStart DateEnd Date Gutierrez Vergara DO [address] [place] [address] PCP - GeneralInternal Ykksbvgc17/11/21
--- OUTSIDE RECORDS SUMMARY | 2025-03-30 16:30 | XMS_ITS | CCD ---
Author Organization [facility] Care Team Providers Care Automobile Body Repairer Name Role Phone Unavailable Primary Care Provider Unavailabl e WILSON, CHE Referring Unavailable WILSON, CHE Referring Unavailable WILSON, CHE Referring Unavailable WILSON, CHE Referring Unavailable MCKENNA RAYO Admitting Unavailable MCKENNA RAYO Attending Unavailable LISA, DR ZIYAD Swan Consulting Unavailable MILA, DR MCKEON Primary Care Unavailable MCKENNA RAYO Consulting Unavailable ZAID, KRANTHI Admitting Unavailable KRANTHI MAR Attending Unavailable MILA, DR MCKEON Primary Care Unavailable MILA, DR MCKEON Consulting Unavailable LISA, DR ZIYAD Swan Consulting Unavailable ZAID, KRANTHI Consulting Unavailable ZAID, AHMAD Admitting Unavailable KRANTHI MAR Consulting Unavailable CHERY MARD Attending Unavailable MILA, DR MCKEON Primary Care Unavailable KRANTHI MAR Attending Unavailable KRANTHI MAR F Referring Unavailable Linda Zaragoza MD Primary Care Provider [phone] Linda Zaragoza DO Primary Care Provider LINDA ZARAGOZA Attending Unavailable LINDA ZARAGOZA Referring Unavailable LINDA ZARAGOZA Primary Care Unavailable LINDA ZARAGOZA Referring Unavailable LINDA ZARAGOZA Primary Care Unavailable Linda Zaragoza DO Primary Care Provider Linda Zaragoza DO Primary Care Provider Medications Current Medications MedicationDrug Class(es)DatesSig (Normalized)Sig (Original)[id number] 200 actuat albuterol 0.09 mg/actuat metered dose inhaler (7 sources)beta2-Adrenergic Agonisttake 2 puff(s) by inhalation four times daily as neededalbuterol (PROVENTIL HFA;VENTOLIN HFA) 90 mcg/actuation inhaler albuterol sulfate HFA 90 mcg/actuation aerosol inhaler Inhale 2 puffs 4 times a day by inhalation route as needed. Activealendronic acid 35 mg oral tablet (9 sources)BisphosphonateStart: 03-30-2023 End: 29-78-0791batztwaxwbr (FOSAMAX) 35 mg tablet Indications: Age-related osteoporosis without current pathological fracture TAKE 1 TABLET BY MOUTH ONCE WEEKLY ON AN EMPTY STOMACH BEFORE BREAKFAST. REMAIN UPRIGHT FOR 30 MINUTES AND TAKE WITH 8 OUNCES OF WATER 12 tablet 3 02/28/2025 Activeatorvastatin 10 mg oral tablet (10 sources)HMG-CoA Reductase InhibitorStart: 98-87-0132ezai 1 tablet by mouth once dailyatorvastatin (LIPITOR) 10 mg tablet Indications: Hyperlipidemia, unspecified hyperlipidemia type TAKE 1 TABLET BY MOUTH DAILY 90 tablet 1 03/23/2025 ActiveStart: 03-28-2023 End: 48-45-2815irwz 1 tablet by mouth once dailyatorvastatin (LIPITOR) 10 mg tablet Indications: Hyperlipidemia, unspecified hyperlipidemia type TAKE 1 TABLET BY MOUTH DAILY 90 tablet 1 09/23/2024 03/23/2025 Discontinued cholecalciferol 0.05 mg oral capsule (7 sources)Vitamin Dcholecalciferol, vitamin D3, 2,000 units capsule daily. Activelevothyroxine sodium 0.088 mg oral tablet (15 sources)l-ThyroxineStart: 04-09-2024 End: 87-79-0749ujny 1 tablet by mouth in the morninglevothyroxine (Synthroid, Levoxyl) 88 MCG tablet Indications: Autoimmune thyroiditis (CMS/HCC) Take1 tablet (88 mcg) by mouth in the morning. on an empty stomach. 360 tablet 04/12/2024 04/12/2025 Activetake 1 tablet by mouth in the morninglevothyroxine (SYNTHROID, LEVOTHROID) 100 MCG tablet Take 1 tablet (100 mcg total) by mouth in the morning. Activelevothyroxine (Tirosint) 88 MCG capsule Take by mouth Daily before meals Active Problems Active Problems Problem ClassificationProblemDateDocumented DateEpisodic/ChronicDisorders of lipid metabolism (13 sources)Hyperlipidemia; Translations: [Hyperlipidemia, unspecified]Onset: 886321-66-6554MjogltnLeaagjtmtg disorders (7 sources)Gastroesophageal reflux disease; Translations: [Gastro-esophageal reflux disease without esophagitis]Onset: 159381-54-7855XngnfrtPqqpkqpeqc disorders (7 sources)Menopausal symptom; Translations: [Menopausal and female climacteric states]Onset: 534923-35-3012EbhpvrfBxmttfkrhjye (4 sources)Senile osteoporosis; Translations: [Age-related osteoporosis without current pathological fracture]Onset: 860969-31-6855VqmdjxlJveqg screening for suspected conditions (not mental disorders or infectious disease) (6 sources)Encounter for screening mammogram for malignant neoplasm of breast; Translations: [Patient encounter status]Onset: 96-55-1269EshjuswlDdmnvxg disorders (20 sources)Autoimmune thyroiditis; Translations: [Nontoxic goiter, unspecified] Onset: 59-80-7796Cwgsfro Past or Other Problems Problem ClassificationProblemDateDocumented DateEpisodic/ChronicMood disorders (7 sources)Mood disordersOnset: 03-26-2023 Resolved: Other bone disease and musculoskeletal deformities (1 source)Other specified disorders of bone density and structure, right thigh; Translations: [OTH D/O BONE DEN STRUCT RT THIGH]Onset: 58-97-1101Kmpafiuj Residual codes; unclassified (1 source)Asymptomatic menopausal state; Translations: [ASYMPTOMATIC MENOPAUSAL STATE]Onset: 45-22-7690Peudshov Results Test NameValueInterpretationReference RangeFacilityCOMPREHENSIVE METABOLIC PANEL on 78-43-8150Fqvtrnd [Mass/Vol]4.4 g/dLNormal3.2-5.3PAvoyelles [facility] Comment on above:Performed By: #### NUPUR, 89740-7 #### [facility] ([id number]) [address] [place], [place] [address]MGU [Catalytic activity/Vol]83 U/TZkywiu13-811GxvFddzui Peoples HospitalComment on above:Performed By: #### NUPUR, 26205-3 #### [facility] ([id number]) [address], [address] [place], [place] [address]YHY [Catalytic activity/Vol]17 U/LNormal0-31Pro[facility]iz HospitalComment on above:Performed By: #### NUPUR, 33357-7 #### [facility] ([id number]) [address], [address] [place], [place] [address]Wbbfy gap [Moles/Vol]9 mmol/LNormal5-15[facility] Comment on above:Performed By: #### NUPUR, 20752-6 #### [facility] ([id number]) [address], [address] [place], [place] [address]OKX [Catalytic activity/Vol]22 U/LNormal0-41Pro[facility] HospitalComment on above:Performed By: #### NUPUR, 62000-6 #### [facility] ([id number]) [address], [address] [place], [place] [address]Evtfiaiqz [Mass/Vol]0.5 mg/dLNormal0.3-1.2ProMedst. vincent's hospital Ortiz HospitalComment on above:Performed By: #### NUPUR, 21810-3 #### [facility] ([id number]) [address], [address] [place], [place] [address]Anpbagx [Mass/Vol]9.8 mg/dLNormal8.5-10.5ProMedst. vincent's hospital Ortiz HospitalComment on above:Performed By: #### NUPUR, 59418-2 #### [facility] ([id number]) [address], [address] [place], [place] [address]Lnsrngho [Moles/Vol]106 mmol/GSsoojo21-770LoiEgunjw Ortiz HospitalComment on above:Performed By: #### NUPUR, 58450-6 #### [facility] ([id number]) [address], [address] [place], [place] [address]AA9 [Moles/Vol]29 mmol/VSlzdbs59-44EupEmbwhoRegency Hospital Cleveland East Comment on above:Performed By: #### NUPUR, 37024-4 #### [facility] ([id number]) [address], [address] [place], [place] [address]Vypzpiphbb [Mass/Vol]0.87 mg/dLNormal0.40-1.00ProWexner Medical CenterComment on above:Result Comment: METHOD TRACEABLE TO IDMS STANDARD Performed By: #### NUPUR, 73708-6 #### [facility] ([id number]) [address], [address] [place], [place] [address]GWV/1.73 sq M.predicted among non-blacks MDRD (S/P/Bld) [Vol rate/Area]73 mL/min/{1.73_m2}Normal>59ProWexner Medical CenterComment on above: Result Comment: Reported eGFR is based on the CKD-EPI 2020 equation that does not use a race coefficient.Performed By: #### NUPUR, 56892-0 #### [facility] ([id number]) [address], [address] [place], [place] [address]Qcbmtoc [Mass/Vol]98 mg/jYKvevuq58-21KuhLszdpeAccess Hospital [facility] Comment on above:Performed By: #### NUPUR, 18017-5 #### [facility] ([id number]) [address], [address] [place], [place] [address]Rvxdekupr [Moles/Vol]4.1 mmol/LNormal3.5-5.0ProWexner Medical CenterComment on above:Performed By: #### NUPUR, 03775-5 #### [facility] ([id number]) [address], [address] [place], [place] [address]Ifflufe [Mass/Vol]7.8 g/dLNormal6.0-8.0[facility] Comment on above:Performed By: #### NUPUR, 61357-9 #### [facility] ([id number]) [address], [address] [place], [place] [address]Rxzymk [Moles/Vol]144 mmol/GGlrepi274-523SzmCdxftz [place] HospitalComment on above:Performed By: #### [facility], 71434-6 #### [facility] ([id number]) [address], [address] [place], [place] [address]Cget nitrogen [Mass/Vol]21 mg/dLNormal5-27ProWexner Medical CenterComment on above:Performed By: #### NUPUR, 14267-2 #### [facility] ([id number]) [address], [address] [place], [place] [address]Vitdpkzntywfe metabolic panelon 92-36-6938Blibpkq [Mass/Vol]4.4 g/dL3.2 - 5.3 g/dLProGerman Hospital SystemALP [Catalytic activity/Vol]83 U/L39 - 130 U/[facility] SystemALT No additional P-5'-P [Catalytic activity/Vol] 17 U/L0 - 31 U/[facility] SystemAnion gap [Moles/Vol]9 mmol/L5 - 15 mmol/[facility] Health SystemAST [Catalytic activity/Vol]22 U/L0 - 41 U/L ProMCass Lake Hospital SystemBilirubin [Mass/Vol]0.5 mg/dL0.3 - 1.2 mg/dLWood County Hospital SystemCalcium [Mass/Vol]9.8 mg/dL8.5 - 10.5 mg/dLWood County Hospital System Chloride [Moles/Vol]106 mmol/L98 - 109 mmol/[facility] Health SystemCO2 [Moles/Vol]29 mmol/L22 - 32 mmol/[facility] SystemCreatinine [Mass/Vol] 0.87 mg/dL0.40 - 1.00 mg/dLKettering Health Main CampusComment on above:METHOD TRACEABLE TO IDFL STANDARDeGFR (CKD-EPI)non-race tedewwngi56- [facility] Community HospitalComment on above: Reported eGFR is based on the CKD-EPI 2020 equation that does not use a race coefficient. Glucose [Mass/Vol]98 mg/dL65 - 99 mg/dLKettering Health Main CampusPotassium [Moles/Vol]4.1 mmol/L3.5 - 5.0 mmol/LProMedst. vincent's hospital Health SystemProtein [Mass/Vol] 7.8 g/dL6.0 - 8.0 g/dLWood County Hospital SystemSodium [Moles/Vol]144 mmol/L134 - 146 mmol/LProMedica Lakehealth [facility] SystemUrea nitrogen [Mass/Vol]21 mg/dL5 - 27 mg/dL [facility] Main CampusLipid 1996 panelon 79-32-3205Khybyphxllp [Mass/Vol]160 mg/dL150 - 200 mg/dLKettering Health Main CampusCholesterol in HDL [Mass/Vol]82 mg/dL 39 - PINF mg/dLKettering Health Main CampusComment on above: HDL <40 mg/dL - High Risk HDL > or = 40mg/dL- Desirable HDL >60 mg/dL - Negative Risk Cholesterol in LDL [Mass/Vol]66 mg/dLNINF - 130 mg/dLKettering Health Main Campus Comment on above: LDL <100 mg/dL - Desirable LDL >160 mg/dL - High Risk Cholesterol in VLDL [Mass/Vol]12 mg/dL0 - 30 mg/dLKettering Health Main Campus Cholesterol.total/Cholesterol in HDL [Mass ratio]2 {ratio}1.0 - 5.0K[facility] Main CampusTriglyceride [Mass/Vol]58 mg/dL27 - 150 mg/dLKettering Health Main CampusCholesterol [Mass/Vol]160 mg/yABlzral355-248DbkStxgihAccess Hospital [facility] Comment on above:Performed By: #### [facility], 15334-8 #### [facility] ([id number]) [address] [place], [place] [address]Qyjqdiggjwm in HDL [Mass/Vol]82 mg/dLNormal>39Pro[facility]ica [facility]iz HospitalComment on above:Result Comment: HDL <40 mg/dL - High Risk HDL > or = 40mg/dL- Desirable HDL >60 mg/dL - Negative Risk Performed By: #### NUPUR, 45608-7 #### [facility] ([id number]) [address], [address] [place], [place] [address]Dnrqemhicex in LDL [Mass/Vol]66 mg/dLNormal<130Pro[facility]ica [facility]son HospitalComment on above:Result Comment: LDL <100 mg/dL - Desirable LDL >160 mg/dL - High Risk Performed By: #### NUPUR, 88611-2 #### [facility] ([id number]) [address], [address] [place], [place] [address]Ffbkruqeapi in VLDL [Mass/Vol]12 mg/dLNormal0-30ProMediMercy Health Allen Hospital HospitalComment on above:Performed By: #### NUPUR, 92225-3 #### [facility] ([id number]) [address], [address] [place], [place] [address]TDNAEEKEYKX:HDL2.2Quxjqf7.0-5.0ProMedica [facility]iz HospitalComment on above:Performed By: #### NUPUR, 88566-2 #### [facility] ([id number]) [address], [address] [place], [place] [address]Dwiefhamfdkl [Mass/Vol]58 mg/bRRenrov15-943MenOqaair Tucson HospitalComment on above:Performed By: #### NUPUR, 90902-4 #### [facility] ([id number], [address] [place], [place] [address]Qr Panel Informationon 78-50-1587KtaWziqkpOhioHealth Shelby HospitalFREE T3 on 92-71-6345PDFI T32.10 pg/mlLCritically low2.18-3.98[facility] Comment on above:Performed By: #### FT3, TSH #### [facility] [address] [place] [address] Dr. Den Dumont T4on 71-19-6792Ftmj T4 [Mass/Vol]0.98 ng/dLNormal0.76-1.46 [facility] HospitalComment on above:Performed By: #### FT4 #### [facility] [address] [address] [address] Den Aparicio 87-64-1304YJO0.304 uIU/mLCritically high0.358-3.740Tr[facility] System West CampusComment on above:Performed By: #### FT3, TSH #### [facility] [address] [address] [address] Den DumontCOMPREHENSIVE METABOLIC PANELon 28-59-9914Yeqsotl [Mass/Vol]4.5 g/dLNormal3.6-5.1Quest DiagnosticsComment on above:Performed By: #### 7600, 80540, 27426, 53915 #### [facility] [place] [address] Portable Sawmill Operator: Teo Daugherty MDAlbumin/Globulin [Mass ratio]1.4 {ratio}Normal 1.0-2.5Quest DiagnosticsComment on above:Performed By: #### 7600, 57410, 59133, 98763 #### [facility] [place] [address] Portable Sawmill Operator: Teo Daughetry MDALP [Catalytic activity/Vol]88 U/EKvbbie93-821 [facility] DiagnosticsComment on above:Performed By: #### 4190, 24056, 58793, 39680 #### [facility] [address] [place] [address] Portable Sawmill Operator: Teo Daugherty MDALT [Catalytic activity/Vol]17 U/LNormal6-29 [facility] DiagnosticsComment on above:Performed By: #### 7600, 10755, 22044, 41154 #### [facility] of [address], [address] [place] [address] Portable Sawmill Operator: Teo Daugherty MDAST [Catalytic activity/Vol]22 U/MIfjiga50-07 [facility] DiagnosticsComment on above:Performed By: #### 7600, 44965, 44162, 72137 #### [facility] of [address], [address] [place] [address] Portable Sawmill Operator: Teo Daugherty MDBilirubin [Mass/Vol]0.5 mg/dLNormal0.2-1.2 Quest DiagnosticsComment on above:Performed By: #### 7600, 45707, 40403, 03315 #### [facility] of [address], [address] [place] [address] Portable Sawmill Operator: Teo Daugherty MDBUN/CREATININE RATIONOT APPLICABLENormal6-22 [facility] DiagnosticsComment on above:Performed By: #### 7600, 56753, 76379, 84642 #### [facility] of [address], [address] [place] [address] Portable Sawmill Operator: Teo Daugherty MDCalcium [Mass/Vol]9.7 mg/dLNormal8.6-10.4Quest DiagnosticsComment on above:Performed By: #### 7600, 26663, 53770, 53418 #### [facility] of [address], [address] [place] [address] Portable Sawmill Operator: Teo Daugherty MDChloride [Moles/Vol]104 mmol/WHrbztt42-460 Quest DiagnosticsComment on above:Performed By: #### 7600, 59965, 93389, 04678 #### [facility] of [address], [address] [place] [address] Portable Sawmill Operator: Teo Daugherty MDCO2 [Moles/Vol]29 mmol/RNkfbcg35-40Ijndw DiagnosticsComment on above:Performed By: #### 7600, 73135, 11814, 56558 #### [facility] [place] [address] Portable Sawmill Operator: Teo BRUCEreatinine [Mass/Vol]0.95 mg/dLNormal0.50-0.99 [facility] DiagnosticsComment on above:Result Comment: For patients >49 years of age, the reference limit for Creatinine is approximately 13% higher for people identified as -[place].Performed By: #### 9000, 52629, 15613, 72354 #### [facility] [place] [address] Portable Sawmill Operator: Teo Daugherty MDeGFR NON-AFR. ULPCDITA69 mL/min/1.67t2Vrraru> OR = 60Quest DiagnosticsComment on above:Performed By: #### 7600, 61499, 92526, 49978 #### [facility] [place] [address] Portable Sawmill Operator: Teo Daugherty MDGFR/1.73 sq M.predicted among blacks MDRD (S/P/Bld) [Vol rate/Area]73 mL/min/{1.73_m2}Normal> OR = 60[facility] Comment on above:Performed By: #### 3730, 23397, 31569, 83703 #### [facility] [place] [address] Portable Sawmill Operator: Teo Daugherty MDGlobulin (S) [Mass/Vol]3.3 g/dLNormal1.9-3.7 Quest DiagnosticsComment on above:Performed By: #### 7600, 19089, 02812, 38953 #### [facility] [place] [address] Portable Sawmill Operator: Teo Daugherty MDGlucose [Mass/Vol]93 mg/hETzzowa43-112Ibksp DiagnosticsComment on above:Result Comment: Non-fasting reference intervalPerformed By: #### 7600, 08270, 98121, 84433 #### [facility] of [place] [address] Portable Sawmill Operator: Teo Daugherty MDPotassium [Moles/Vol]4.1 mmol/LNormal3.5-5.3 Quest DiagnosticsComment on above:Performed By: #### 7600, 55482, 00152, 21897 #### [facility] of [place] [address] Portable Sawmill Operator: Teo Daugherty MDProtein [Mass/Vol]7.8 g/dLNormal6.1-8.1Quest DiagnosticsComment on above:Performed By: #### 7600, 20529, 42291, 14854 #### [facility] of [place] [address] Portable Sawmill Operator: Teo Daugherty MDSodium [Moles/Vol]140 mmol/IUbulhy860-990Ziwdn DiagnosticsComment on above:Performed By: #### 7600, 24787, 94917, 84867 #### [facility] of [place] [address] Portable Sawmill Operator: Teo Daugherty MDUrea nitrogen [Mass/Vol]24 mg/dLNormal7-25 Quest DiagnosticsComment on above:Performed By: #### 7600, 00149, 86536, 66107 #### [facility] of [place] [address] Portable Sawmill Operator: Teo Daugherty MDLIPID PANEL, STANDARDon 02-50-3937Vofjerpkdbl [Mass/Vol]151 mg/dLNormal<200Quest DiagnosticsComment on above:Order Comment: FASTING:NO FASTING: NOPerformed By: #### 7600, 54169, 43163, 24695 #### [facility] of [address] [address] Portable Sawmill Operator: Teo BRUCEholesterol in HDL [Mass/Vol]77 mg/dLNormal> OR = 50Quest DiagnosticsComment on above:Order Comment: FASTING:NO FASTING: NOPerformed By: #### 7600, 94658, 79785, 28560 #### [facility] [address], [address] [place] [address] Portable Sawmill Operator: Teo BRUCEholesterol in LDL [Mass/Vol]56 mg/dLNormal Quest DiagnosticsComment on above:Order Comment: FASTING:NO FASTING: NOResult Comment: Reference range: <100 Desirable range <100 mg/dL for primary prevention; <70 mg/dL for patients with CHD or diabetic patients with > or = 2 CHD risk factors. LDL-C is now calculated using the Lauren calculation, which is a validated novel method providing better accuracy than the Friedewald equation in the estimation of LDL-C. Bradley SS et al. SOHAIL. 2013;310(19): 5713-2201 (http://education.RSens.SHEEX/faq/NMO503)Performed By: #### 2830, 13337, 82910, 58303 #### [facility] [address], [address] [place] [address] Portable Sawmill Operator: Teo Agustin.total/Cholesterol in HDL [Mass ratio]2.0 {ratio}Normal<5.0Quest DiagnosticsComment on above:Order Comment: FASTING:NO FASTING: NOPerformed By: #### 7600, 93127, 45560, 46416 #### [facility] [address], [address] [place] [address] Portable Sawmill Operator: Teo NOVA HDL VKATRSBFRJO61 mg/dL (calc)Normal<130 [facility] DiagnosticsComment on above:Order Comment: FASTING:NO FASTING: NOResult Comment: For patients with diabetes plus 1 major ASCVD risk factor, treating to a non-HDL-C goal of <100 mg/dL (LDL-C of <70 mg/dL) is considered a therapeutic option.Performed By: #### 7600, 12376, 10751, 75993 #### [facility] [address], [address] [place] [address] Portable Sawmill Operator: Teo Daugherty MDTriglyceride [Mass/Vol]93 mg/dLNormal<150Quest DiagnosticsComment on above:Order Comment: FASTING:NO FASTING: NOPerformed By: #### 7600, 89551, 69296, 08701 #### [facility] [address], [address] [place] [address] Portable Sawmill Operator: Teo CHANG+FREE T4on 99-27-3922Nnov T4 [Mass/Vol]1.2 ng/dLNormal0.8-1.8Quest DiagnosticsComment on above:Performed By: #### 7600, 67284, 61712, 64804 #### [facility] [address], [address] [place] [address] Portable Sawmill Operator: Teo Daugherty MDSEATTLE VA MED[facility] Qn5.50 m[IU]/LHigh0.40-4.50Quest DiagnosticsComment on above:Performed By: #### 7600, 80161, 39253, 53931 #### [facility] [address], [address] [place] [address] Portable Sawmill Operator: Teo Daugherty MDVITAMIN D,25-OH,TOTAL,IAon 21-29-7972DLBSBAV D,25-OH,TOTAL,IA30 ng/pGFequvf56-025Rqxjb DiagnosticsComment on above:Result Comment: Vitamin D Status 25-OH Vitamin D: Deficiency: <20 ng/mL Insufficiency: 20 - 29 ng/mL Optimal: > or = 30 ng/mL For 25-OH Vitamin D testing on patients on D2-supplementation and patients for whom quantitation of D2 and D3 fractions is required, the QuestAssureD(TM) 25-OH VIT D, (D2,D3), LC/MS/MS is recommended: order code 42906 (patients >2yrs). See Note 1 Note 1 For additional information, please refer to http://education.RSens.SHEEX/faq/YPM563 (This link is being provided for informational/ educational purposes only.)Performed By: #### 7600, 07317, 06379, 63522 #### [facility] [address] [facility], [address] [place] [address] Portable Sawmill Operator: Teo Daugherty MDM MAMM SCREEN 3D STEPH CADon 44-46-0486DK MAMM SCREEN 3D STEPH CADPatient: JOLEEN HALL Exam Date: 05/18/2021 : 1955 Gender:F Ordering : DR. MCKENNA RAYO . Admission #: [id number] Family : DR LINDA ZARAGOZA Order #: [id number] CLICK HERE TO VIEW EXAM RADIOLOGY REPORT [...] Treatments None Family Cancers None LOCATION: [facility] BREAST COMPOSITION: Almost entirely fatty. FINDINGS: DIAGNOSTIC [...] by: Ziyad Armenta M.D. on 05/18/2021 at 15:16[facility] SystemXR DEXA BONE DENSITYon 64-57-6952DI DEXA BONE DENSITYEXAMINATION: XR DEXA BONE DENSITY, 05/18/2021 7:53 AM [...] Electronically authenticated by: ZIYAD ARMENTA Date: 2021-05-18 08:21[facility] SystemFREE T3on 63-05-7437GDXV T32.44 pg/mlLCritically low2.77-5.27 [facility] CampusComment on above:Performed By: #### FT3, TSH #### [facility] [address] [place] [address] Dr. Den Dumont T4on 02-55-8807Mtwt T4 [Mass/Vol]0.79 ng/dLNormal0.78-2.19 [facility] CampusComment on above:Performed By: #### FT4 #### [facility] [address] [place] [address] Dr. Den Aparicio 78-69-1738MLB9.919 uIU/mLCritically high0.470-4.680[facility] West CampusComment on above:Performed By: #### FT3, TSH #### [facility] [address] [place] [address] Dr. Den Kohler [facility] BELOWNoSelect Medical Cleveland Clinic Rehabilitation Hospital, BeachwoodComment on above: Result Comment: <0.34 UIU/ml HYPERTHYROID 0.34-5.60 UIU/ml EUTHYROID >5.60 UIU/ml HYPOTHYROIDPerformed By: #### FT3, TSH #### [facility] [address] [place] [address] Dr. Den Strange THYROIDon 11-97-8584ZG THYROIDEXAMINATION: US THYROID HISTORY: Simple goiter COMPARISON: Ultrasound [...] bilateral TR 3 nodules. TR 3: The [employer] TI-RADS committee's white paper recommendations for thyroid lesions classified as TR3 (mildly suspicious) are listed below: > 1.5 cm. Follow-up ultrasound in 1, 3, and 5 years. > 2.5 cm. FNA. J. Am Cornell Radiol 2017;14:587-595. Electronically authenticated by: ZIYAD ARMENTA Date: 2021-04-09 16:19No[facility]-CoV-2on 81-19-9940SCOG-CoV-2DetectedAbnormalNot Detected [facility]erry HospitalComment on above:Result Comment: (NOTE) Testing was performed using the Aptima SARS-CoV-2 assay. This nucleic acid amplification test was developed and its performance characteristics determined by [employer]. Nucleic acid amplification tests include PCR and [...] detected) result in this assay. Performed At: =[address] [place] [id number] Adrián Paige MD Ph:[phone] By: #### ACOV #### [facility] [address] [place], [place] [id number] Certified Histologic Technician: SAYRA Joseph-CoV-2on 63-19-1840TYNJ-CoV-2Not DetectedNormal Not DetectedMartins Ferry HospitalComment on above:Result Comment: (NOTE) This nucleic acid amplification test was developed and its performance characteristics determined by [employer]. Nucleic acid amplification tests include PCR and [...] detected) result in this assay. Performed At: [facility] [address] [place], [place] [id number] Cristal William [facility] Ph:[phone] By: #### ACOV #### [facility] [address] [place] [address] Certified Histologic Technician: SAYRA Joseph-CoV-2on 73-14-5604GPYY-CoV-2Not DetectedNormal Not DetectedMartins Ferry HospitalComthree rivers health hospital on above:Result Comment: (NOTE) This nucleic acid amplification test was developed and its performance characteristics determined by [employer]. Nucleic acid amplification tests include PCR and [...] detected) result in this assay. Performed At: [employer] [facility] [address] [facility] [place] [id number] Miguelito Luna MD Ph:[phone] By: #### ACOV #### [facility] [address] [place] [address] Certified Histologic Technician: Xander Simental MD Vital Signs Date TimeVital SignValuePerforming LbsroigodOkxnslqw90-33-4753 13:42-0500Body .5 cmJocande Zaragoza DO Work Phone: [facility]12-30-2024 13:42-0500Body mass index (BMI) [Ratio]30.14 kg/m2Aracelicande Martinezs DO Work Phone: [facility] Center[facility]out[facility]12-30-2024 13:42-0500Body ummfiadbgjs35.81 [degF]Linda Zaragoza DO Work Phone: [employer]ist12-30-2024 13:42-0500Body cnribi99.56 kgLinda Michelles DO Work Phone: [facility]12-30-2024 13:42-0500Diastolic blood twdyifyb61 mm[Hg]Linda Zaragoza DO Work Phone: [facility] Center[facility]12-30-2024 13:42-0500Heart rate 68 /minJocande Mila DO Work Phone: [facility]12-30-2024 13:42-0500 Respiratory rate18 /minJocande Martinezs DO Work Phone: [facility]12-30-2024 13:42-9716FcP8% (BldA) [Mass fraction]97 %Linda Zaragoza DO Work Phone: [facility]12-30-2024 13:42-0500Systolic blood rryjvknd384 mm[Hg]Linda Zaragoza DO Work Phone: [facility]11-18-2024 09:04-0500Body fjubpl428.6 Moshe Mar MD Work Phone: [facility] HospitalVaiqguxksf97-60-1351 09:04-0500Body mass index (BMI) [Ratio]29.38 kg/a9QexduKranthi Mar MD Work Phone: [phone] HospitalFmcmxsmrzm07-73-7262 09:04-0500Body .56 kgKranthi Mar MD Work Phone: [facility] HospitalGtumthtavc64-78-0567 09:04-0500Diastolic blood mm[Hg]Kranthi Mar MD Work Phone: [phone] HospitalDdxhclbeih85-10-7333 09:04-0500Heart rate72 /min Kranthi Mar MD Work Phone: [place] [phone] 09:04-0500Respiratory rate16 /minKranthi Mar MD Work Phone: [place] [address]Wiqcprdqqv65-81-0480 09:04-0500Systolic blood dsnwnykd496 mm[Hg]Kranthi Mar MD Work Phone: [facility] Encounters Encounter DateEncounter TypeCare ProviderFacilityStart: 03-23-2025 End: 24-11-6757WwdxzuNfbn L Mila DO Work Phone: [facility] Physicians Internal Medicine - Family MedicineComment on above:Hyperlipidemia, unspecified hyperlipidemia typeStart: 02-18-2025 End: 70-67-8765CcqbxbUfbo L Yuhas DO Work Phone: [facility] Medicine - Family MedicineComment on above:Age-related osteoporosis without current pathological fractureStart: 09-23-2024 End: 17-41-6554XevogyKhdx Emeka Zaragoza DO Work Phone: [facility] Internal Medicine - Family MedicineComment on above:Hyperlipidemia, unspecified hyperlipidemia typeStart: 05-24-2024 End: 77-93-1253qyudqohzltHNOUCleveland Clinic Akron General HospitalStart: 05-24-2024 End: 90-30-6277Qnyijtubx for general adult medical examination with abnormal findingsLinda Zaragoza DO Work Phone: [facility] [employer] Work Phone: Start: 05-24-2024 End: 04-74-9146Turvnnll preventive med est patient 65yrs& olderLinda Zaragoza DO Work Phone: [facility]icians Internal Medicine - [facility] MedicineComment on above:Abnormal wellness exam (Primary Dx); Hyperlipidemia, unspecified hyperlipidemia type; Encounter for screening mammogram for malignant neoplasm of breast; Age-related osteoporosis without current pathological fracture; Kanchan's thyroiditisStart: 05-24-2024 End: 76-95-3975ujlujfycvoVLYBMaimonides Medical Center Ambulatory PPGStart: 04-12-2024 End: 93-61-2111Fxcydk Sridevi Mar MD Work Phone: [facility] ENDOCRINOLOGYStart: 04-12-2024 End: 20-15-4171Fchjwo Sridevi Mar MD Work Phone: [facility] ENDOCRINOLOGYStart: 04-12-2024 End: 20-89-5640Xkdztq outpatient visit 25 minutesKranthi Mar MD Work Phone: [facility] ENDOCRINOLOGYComment on above:Autoimmune thyroiditis (CMS/HCC) (Primary Dx); Nontoxic multinodular goiter (CMS/HCC)Start: 04-12-2024 End: 44-69-1110jettoayxoaZASHESydney Hernandez AvailableStart: 03-26-2024 End: 23-87-1023Lpifcxgrb encounterRikkibarby Kruger LEIGH ANNProMedica Physicians Internal [facility] Collaborativetart: 03-23-2024 End: 73-79-3281SuesdjCofb L Mila DO Work Phone: [facility] - [facility] HospitalComment on above:Hyperlipidemia, unspecified hyperlipidemia typeStart: 03-06-2024 End: 96-13-9646HtcdiiEhyg L Mila DO Work Phone: [facility] Internal Medicine - [facility] HospitalComment on above:Age-related osteoporosis without current pathological fractureStart: 03-21-2022 End: 60-80-8432vgjpsnpihpVBEZS SABBAGHFacility:S9Nvrzb: 05-18-2021 End: 26-13-6644wjgohpijnyUUDDPP MOOREFacility:K3Qahgw: 04-09-2021 End: 79-56-2751byovqcsksmBFOLS SABBAGHFacility:I6Qlulv: 04-27-2020 End: 10-20-2959Xygcddu encounter procedureLUIS E [facility] Hospitaltart: 04-27-2020 End: 25-15-1190Opszeudzac hospital visit by physicianSEDMOND RIOS DOCTORStart: 04-12-2020 End: 09-88-2843Yxxbdtq encounter procedureLUIS E SIMONParma Community General Hospitaltart: 04-12-2020 End: 61-31-3782Zcjtfcujcj hospital visit by physicianSEDMOND RIOS DOCTORStart: 03-15-2020 End: 68-50-3174Okvnfhx encounter procedureLUIS E [facility] Hospitaltart: 03-14-2020 End: 53-11-3419Ymnueyfzby hospital visit by physicianSEDMOND RIOS DOCTORStart: 03-03-2020 End: 00-07-2999Zqipogw encounter procedureLUIS E [facility] CenterStart: 03-03-2020 End: 64-74-5768Nvbtfmdilb hospital visit by physicianSEDMOND RAMOS LAB DOCTOR Procedures DateProcedureProcedure DetailPerforming ClinicianStart: 05-90-9643Lelqg depression screening assessmentLinda Zaragoza DO Work Phone: Start: 55-20-7827Soehv depression screening assessment Linda Zaragoza DO Work Phone: Start: 39-11-7141VXOHP-19 AMBULATORYLUIS WILSON Start: 10-75-1483UBGKX-19 AMBULATORYLUIS LORRIIStart: 09-20-9847WWHXK-19 AMBULATORYLUIS WILSON Plan of Treatment DateCare ActivityDetailAuthorStart: 70-02-7945BOpK,Tdap and Td Vaccines (2 - Td or Tdap)DTaP,Tdap and Td Vaccines (2 - Td or Tdap)[facility] SystemStart: 39-91-5723Xegpu BMI ScreeningAdult BMI ScreeningProGerman Hospital SystemStart: 79-27-5830Ccgjmtzplw ScreeningDepression ScreeningProGerman Hospital SystemStart: 56-36-8779Jogj Risk ScreeningFall Risk ScreeningWood County Hospital SystemStart: 45-99-7505Audjvor ScreeningTobacco ScreeningProGerman Hospital SystemStart: 04-11-2025 End: 63-36-6818Pvhagxu encounter topdpsdht10/17/2025 9:00 AM EST Office Visit [facility] [address] [place] [phone] Kranthi Mar MD [address] [place] [address] NOMRoyal ENDOCRINOLOGYStart: 04-09-2025 End: 48-53-3105Isqnqoy encounter procedureProSelect [facility] - Mammography/DEXA ImagingStart: 47-47-0065LDJPZ-19 Vaccine ( season) COVID-19 Vaccine ( season)[facility] SystemStart: 01-24-2025 Influenza vaccinationInfluenza VaccineWood County Hospital SystemStart: 07-08-2024 End: 62-35-4917nxinhmianq00/13/2025 2:15 PM EST Support Visit [facility] [address] [place] [place] [phone] Mario Nunez DO [address], [place] [address] [facility] Physicians Internal Medicine [facility] MedicineStart: 05-24-2024 End: 75-14-7014ACW Breast - bilateral screeningMammography screening bilateral with CAD Imaging Routine Encounter for screening mammogram for malignant neoplasm of breast Expected: 05/24/2024, Expires: 05/24/2025[facility] SystemComment on above:Expected: 05/24/2024, Expires: 05/24/2025Start: 05-24-2024 End: 52-34-2817HJQ Skeletal system Views for bone densityDexa scan central skeletal Imaging Routine Age-related osteoporosis without current pathological fracture Expected: 05/24/2024, Expires: 05/24/2025[facility] Work Phone: Comment on above:Expected: 05/24/2024, Expires: 05/24/2025Start: 05-24-2024 End: 40-48-1035Xxmnbig encounter rzbxnoteo24/30/2024 1:30 PM EST [facility] [address] [place] [phone] Linda Zaragoza, [address] [place] [facility] Physicians Internal Medicine [facility] MedicineStart: 04-12-2024 End: 51-20-607599077050-wydjoudtzcqqcy D3 [Mass/volume] in Serum or PlasmaVitamin D 25 hydroxy Lab Routine Autoimmune thyroiditis (CMS/HCC) Expected: 04/12/2024 (Approximate), Expires: 04/12/2025[facility] HealthcareComment on above:Expected: 04/12/2024 (Approximate), Expires: 04/12/2025Start: 04-12-2024 End: 06-11-8349Rtnksvsxuau [Units/volume] in Serum or PlasmaTSH Lab Routine Autoimmune thyroiditis (CMS/HCC) Expected: 04/12/2024 (Approximate), Expires: 04/12/2025[facility] HealthcareComment on above:Expected: 04/12/2024 (Approximate), Expires: 04/12/2025Start: 04-12-2024 End: 63-89-4074Zvlcqbybd (T4) free [Mass/volume] in Serum or PlasmaT4, free Lab Routine Autoimmune thyroiditis (CMS/HCC) Expected: 04/12/2024 (Approximate), Expires: 04/12/2025[facility] HealthcareComment on above:Expected: 04/12/2024 (Approximate), Expires: 04/12/2025Start: 04-12-2024 End: 99-73-2811Uarrtrghizlfwqms (T3) Free [Mass/volume] in Serum or PlasmaT3, free Lab Routine Autoimmune thyroiditis (CMS/HCC) Expected: 04/12/2024 (Approximate), Expires: 04/12/2025[facility] Healthcare Work Phone: Comment on above:Expected: 04/12/2024 (Approximate), Expires: 04/12/2025Start: 04-12-2024 End: 52-89-2208FH Thyroid glandUS thyroid Imaging Routine Nontoxic multinodular goiter (CMS/HCC) Expected: 04/12/2024, Expires: 04/12/2025[facility] HealthcareComment on above:Expected: 04/12/2024, Expires: 04/12/2025Start: 66-56-7689Cpfbn BMI ScreeningAdult BMI ScreeningProGerman Hospital SystemStart: 76-19-6937Lpdocnncmi ScreeningDepression ScreeningProGerman Hospital SystemStart: 18-42-3294Qfpx Risk ScreeningFall Risk ScreeningPro[facility] Hospital SystemStart: 09-87-7458Dwzzpuu ScreeningTobacco ScreeningProThe Christ Hospitalca Health SystemStart: 40-77-8291JPAEU-19 Vaccine ( season)COVID-19 Vaccine ( season)[facility]: 37-87-3240CTURR-19 Vaccine ( season)COVID-19 Vaccine ( season)[facility] SystemStart: 80-71-0389Szalywhuu vaccinationInfluenza VaccineWood County Hospital SystemStart: 70-68-2712Mhnrgkipo vaccinationFlu vaccine (#1)[facility]: 09-10-0779Jowfpzmcg for malignant neoplasm of breastBreast cancer [facility]: 21-89-5210Bhtlvhgvn for malignant neoplasm of colonColon cancer screen colonoscopyFulton County Health Centerart: 29-10-2169Lexezzmg Vaccine (1 of 2) Shingles Vaccine (1 of 2)[facility]: 46-15-9773Baigi panelLipid [facility]: 55-39-2975Htnvjmswm for malignant neoplasm of breastMammogramNOMS Newark HospitalStart: 57-88-2086Cmhmeiecd for malignant neoplasm of cervixCervical cancer [facility]: 99-31-2740WTwA/Tdap/Td vaccine (1 - Tdap)DTaP/Tdap/Td vaccine (1 - Tdap)[facility]: 05-83-7509Aaasd BMI Follow Up PlanAdult BMI Follow Up PlanUNC Health Caldwelltart: 03-81-0463BYV screeningHIV [facility]: 68-87-7048Rhldhsqdg C screeningHepatitis C [facility]: 44-25-9586Btojkqted for malignant neoplasm of colonNOMS Healthcare End: 40-75-7005Dxjys AmbulatoryCovid-19 Ambulatory Lab Routine Once for 1 Occurrences starting 03/03/2020 until 03/03/2020[place]:Once for 1 Occurrences starting 03/03/2020 until 03/03/2020[facility] [place] End: 40-60-2297Btqpz-19 AmbulatoryCovid-19 Ambulatory Lab Routine Once for 1 Occurrences starting 04/12/2020 until 04/12/2020[facility], [place]Comment on above:Once for 1 Occurrences starting 04/12/2020 until 04/12/2020 End: 13-02-7696Thmqx-19 AmbulatoryCovid-19 Ambulatory Lab Routine Once for 1 Occurrences starting 04/27/2020 until 04/27/2020[facility], [place]Comment on above:Once for 1 Occurrences starting 04/27/2020 until 04/27/2020 Immunizations Immunization DateImmunizationNotesCare StrmotknKtoleeaz29-33-9857corynlrcc virus vaccine, unspecified formulationJohn Yuhas DO Work Phone: [facility] CampusRcnaff20-99-0925neahjiofa virus vaccine, unspecified formulationJohn Yuhas DO Work Phone: [facility] CampusYmagep74-19-7979Wfrkqkfhz, High-dose, QuadrivalentJohn Yuhas DO Work Phone: [facility] CampusBqibzd59-75-0176Pyfascwsxska Conjugate 20-valentJohn Yuhas DO Work Phone: [facility] CampusPlctad81-48-1390NHHJI-58, mRNA, LNP- S, PF, 100mcg/0.5mL DoseJohn Yuhas DO Work Phone: [facility] CampusOsycsg65-90-7886Buzyeugdk, High-dose, QuadrivalentJohn Yuhas DO Work Phone: [facility]02-07-2020zoster vaccine recombinantJohn Yuhas DO Work Phone: [facility]11-04-2019zoster vaccine recombinantJohn Yuhas DO Work Phone: [facility] CampusOmwzoj32-94-8885ohwlhwuhn, high dose seasonal, preservative-freeJohn Yuhas DO Work Phone: [facility] CampusCbtqhq94-74-4288Sjzbrkjg, quadrivalent, recombinant, injectable influenza vaccine, preservative freeJohn Yuhas DO Work Phone: [facility] CampusBbjsio83-30-5168vmqtiaqyt, injectable, quadrivalent, contains preservativeJohn Yuhas DO Work Phone: [facility] CampusBbfips56-34-8196rrasymqdo, injectable, quadrivalent, contains preservativeJohn Yuhas DO Work Phone: [facility] CampusNvfhxx97-51-6362ytbmpales A monovalent (H5N1), adjuvanted, National stockpile 2013John Yuhas DO Work Phone: [facility]06-19-2016zoster vaccine, live Linda Yuhas DO Work Phone: [facility]06-15-2016tetanus toxoid, reduced diphtheria toxoid, and acellular pertussis vaccine, adsorbedJohn Yuhas DO Work Phone: [facility] Payers DatePayer CategoryPayerPolicy [id number] [facility] Member Subscriber Plan / Payer (Effective 2024-Present) Name: Joleen Hall Relation to Subscriber: Spouse Name: MICHELLE HALL Date of : 1966 (Home) Address: [address] [place] [address] Payer ID: Not on file Type: Not on file Address: [facility] [id number] [place] [id number] County General Hospital Managed Care - PPOANTHEM [id number]iHBZYLA BLUE ACCESS (PPO) [id number] 2022-Present [phone] [address] [place] [id number] [id number]8712-68-7958Avbjpgh Health Insurance [id number] [id number] 2..1.201735.3.57[id number] 2.0.1.071837.3.57[id number] 2.0.1.407741.3.57[id number] 2..1.108959.3.57[id number] 2.0.1.377000.3.57[id number] 2.16.840.1.796177.3.57[id number] 2.16.840.1.529648.3.57[id number] 2.16.840.1.759709.3.57[id number] 2..840.1.506415.3.57[id number] 2.16.840.1.409620.3.579.2.1286 Social History DateTypeDetailFacilityTobacco smoking status NHISUnknown if ever smokedAultman Hospital: 29-02-1026Eev Assigned At BirthNot on [facility]: 03-20-2022 End: 25-97-3497Aoqkwah smoking status NHISNever smoked tobaccoWood County Hospital SystemStart: 03-20-2022 End: 20-33-7435Bojswty use and exposureSmokeless tobacco non-userWood County Hospital SystemStart: 89-48-6282Eqdeejllw beverage intakeLifetime non-drinker (finding)[facility] HealthcareStart: 03-25-2024 End: 21-17-4283Qfnvpcw of Social functionProGerman Hospital SystemStart: 03-25-2024 End: 43-81-6681Toyjcbo use panelWood County Hospital SystemStart: 03-26-2023 End: 77-79-6944Ojtiifsfu beverage intakeCurrent drinker of alcohol (finding) [facility] SystemAdolescent depression screening yjwjystwlv2PlyRxtyqmUNC Health Caldwelltart: 21-91-2307Wnclpkw CommentOccasionalWood County Hospital System Start: 43-04-3945FouTpgyrb (finding)[facility] SystemNEGATED: Highlighted rowStart: NINFHistory of tobacco usePassive smokerWood County Hospital System Medical Equipment Procedure CodeEquipment CodeEquipment Original TextEquipment IdentifierDatesLens Iol Ultrasert 21.0d - [id number] - [id number]: 39-65-7719Onfm Iol Ultrasert 21.5d - [id number] - [id number]: 04-17-2021 Clinical Notes 03-26-2024 to 05-24-2024 Note Date & WnwfKrxpBoruolly46-52-6720 History of Present illness Narrative* Linda Zaragoza, DO - 05/24/2024 1:30 PM EST IM PROGRESS NOTE Patient - Joleen Hall Age - 68 y.o. - 1955 ASSESSMENT & PLAN Patient presented to office today for Annual Adult Wellness Visit. Education was provided on healthy nutrition, including a diet rich in fruits and vegetables, minimizing simple carbohydrates, salt, and saturated fats. Encouraged regular cardiovascular exercise suchas walking at least 30 minutes daily, 5 times per week - goal. Emphasized preventive health measures reduce health risks and promote healthy living. Goal for pt. is to achieve healthy BMI of 25 or under to reduce risk of developing diabetes and cardiovascular diseases. 1. Abnormal wellness exam (Primary) -goals of treatment, and health maintenance activities specific for a 68-year-old female were reviewed with the patient. -she is up-to-date on her immunizations. She is overdue for some cancer screening. 2. Hyperlipidemia, unspecified hyperlipidemia type -currently on atorvastatin 20 mg daily -repeat lipid panel to assess efficacy of current treatment and LFTs to assess side effects - Comprehensive metabolic panel; Future - Lipid profile; Future 3. Encounter for screening mammogram for malignant neoplasm of breast -agrees to a mammogram - Mammography screening bilateral with CAD; Future 4. Age-related osteoporosis without current pathological fracture -currently on alendronate -repeat DEXA scan to assess efficacy of treatment - Dexa scan central skeletal; Future 5. Kanchan's thyroiditis -I reviewed results of recent thyroid function tests done at endocrinology -continue levothyroxine 100 mcg daily Subjective 68-year-old female presents for annual wellness visit. Since last year, she reports no changes in her health. She continues to work at her job, without any difficulties. No musculoskeletal pains. Is sleeping well. However reports she will be retiring before the end of next year. -her sleep is unchanged from previous. Does not feel unrested or tired when waking up. -she has not had any problems taking her current medications including atorvastatin, alendronate orlevothyroxine. -recently saw her credit professional who made no changes. -has been several years since her last mammogram and DEXA scan. A review of systems was negative except for the following: Endocrine: Stable thyroid function Musculoskeletal: joint stiffness and improves with activity. Exam BP 122/76 (BP Site: Left Arm, BP Postition: Sitting, BP CUFF SIZE: M (9-13 inches)) Pulse 68 Temp 36.6 C (97.8 F) (Oral) Resp 18 Ht 165.5 cm (5' 5.16 ) Wt 82.6 kg (182 lb) SpO2 97% BMI 30.14 kg/m Physical Exam Vitals reviewed. Constitutional: General: She is not in acute distress. Appearance: She is obese. She is not toxic-appearing. HENT: Head: Normocephalic. Right Ear: External ear normal. Left Ear: External ear normal. Nose: No congestion or rhinorrhea. Mouth/Throat: Mouth: Mucous membranes are moist. Eyes: General: No scleral icterus. Neck: Vascular: No carotid bruit. Cardiovascular: Rate and Rhythm: Normal rate and regular rhythm. Pulses: Normal pulses. Heart sounds: No murmur heard. No gallop. Pulmonary: Effort: Pulmonary effort is normal. Breath sounds: No wheezing or rales. Abdominal: Palpations: Abdomen is soft. Musculoskeletal: Right lower leg: No edema. Left lower leg: No edema. Lymphadenopathy: Cervical: No cervical adenopathy. Skin: General: Skin is warm and dry. Coloration: Skin is not jaundiced. Findings: No bruising. Neurological: General: No focal deficit present. Mental Status: She is alert and oriented to person, place, and time. Gait: Gait normal. Deep Tendon Reflexes: Reflexes normal. Psychiatric: Mood and Affect: Mood normal. Behavior: Behavior normal. Meds Current Outpatient Medications: albuterol (PROVENTIL HFA;VENTOLIN HFA) 90 mcg/actuation inhaler, albuterol sulfate HFA 90 mcg/actuation aerosol inhaler Inhale 2 puffs 4 times a day by inhalation route as needed., Disp: , Rfl: alendronate (FOSAMAX) 35 mg tablet, TAKE 1 TABLET BY MOUTH ONCE WEEKLY ON AN EMPTY STOMACH BEFORE BREAKFAST. REMAIN UPRIGHT FOR 30 MINUTES AND TAKE WITH 8 OUNCES OF WATER, Disp: 12 tablet, Rfl: 3 atorvastatin (LIPITOR) 10 mg tablet, take 1 tablet by mouth daily, Disp: 90 tablet, Rfl: 1 cholecalciferol, vitamin D3, 2,000 units capsule, daily., Disp: , Rfl: levothyroxine (SYNTHROID, LEVOTHROID) 100 MCG tablet, Take 1 tablet (100 mcg total) by mouth in themorning., Disp: , Rfl: Lab Results No visits with results within 1 Month(s) from this visit. Latest known visit with results is: Hospital Outpatient Visit on 03/26/2023 Component Date Value Ref Range Status Cholesterol 03/26/2023 129 (L) 150 - 200 mg/dL Final Triglycerides 03/26/2023 82 27 - 150 mg/dL Final HDL Cholesterol 03/26/2023 70 >39 mg/dL Final VLDL 03/26/2023 16 0 - 30 mg/dL Final LDL (calc) 03/26/2023 43 <130 mg/dL Final Cholesterol:HDL Ratio 03/26/2023 1.8 1.0 - 5.0 Final Sodium 03/26/2023 142 134 - 146 mmol/L Final Potassium, Bld 03/26/2023 4.1 3.5 - 5.0 mmol/L Final Chloride 03/26/2023 105 98 - 109 mmol/L Final CO2 03/26/2023 28 22 - 32 mmol/L Final Anion gap 03/26/2023 9 5 - 15 mmol/L Final BUN 03/26/2023 21 5 - 27 mg/dL Final Creatinine 03/26/2023 0.98 0.40 - 1.00 mg/dL Final Glucose 03/26/2023 103 (H) 65 - 99 mg/dL Final Calcium 03/26/2023 10.1 8.5 - 10.5 mg/dL Final Total Protein 03/26/2023 7.6 6.0 - 8.0 g/dL Final Albumin 03/26/2023 4.4 3.2 - 5.3 g/dL Final Alkaline Phosphatase 03/26/2023 85 39 - 130 U/L Final AST 03/26/2023 25 0 - 41 U/L Final ALT 03/26/2023 19 0 - 31 U/L Final Total bilirubin 03/26/2023 0.3 0.3 - 1.2 mg/dL Final eGFR (CKD-EPI)non-race dependent 03/26/2023 63 >59 ml/min/1.73sq.m Final Other Testing No results found. Linda Zaragoza DO., [facility] Office: [phone] documented in this encounterKettering Health Main Campus11-18-2024 History of Present illness Narrative* Kranthi Mar MD - 04/12/2024 9:00 AM EST Joleen Hall is a 68 y.o. female Kranthi Mar MD presents with chief complaint of Thyroid Problem and Follow-up HPI: Interim History: 03/2024 Follow-up office visit 04/12/2024 for followup of Kanchan's and nodules. She is been on levothyroxine 88 mcg daily. lab on 03/2024 TSH 5.7, FT4 0.84 (0.76- 1.46), FT3 2.22 (2.18-3.98). Interim History: 03/2023 Follow-up office visit 04/14/2023 for followup of Kanchan's and nodules. She is been on levothyroxine 75 mcg daily. lab on 03/2023 TSH 5.5, FT4 0.97 (0.76- 1.46), FT3 2.12 (2.18-3.98). US [id number] mmnodule in right lobe and [id number] in left lobe both are TR3 Interim History: 03/2022 Follow-up office visit 04/22/2022 for followup of Kanchan's and nodules. She is been on levothyroxine 75 mcg daily. lab on 06/2021 TSH 5.4, FT4 1.2 (0.8-1.8). Interim History: 03/2021 Follow-up office visit 04/23/2021 for followup of Kanchan's and nodules. She is been on levothyroxine 50 mcg daily. new US 19 mm in right lobe and 16 mm in left lobe, lab TSH 8.9, FT4 0.79 0.78-2.19), FT3 2.44(2.77-5.27) Interim History: 09/2020 Follow-up office visit 10/19/2020 for followup of Kanchan's and nodules. Biopsy done in March/2019, within normal limits. 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 She is been on levothyroxine 50, mcg daily. Interim History: 02/2019. Followup visit on 03/09/2019 for hypothyroidism. Lab overcorrected. TSH 0.07, free T4 1.84 (0.78-2.19), free T3 4.99 (2.77-5.7) and she is on levothyroxine, ultrasound done right lobe 5.6 x 2.5 x 2.5with multiple nodules, largest 15 x 17 x 6 with hard to evaluate the border, left lobe 4.8 x 1.8 x 1.8 with 15 x 10 x 12 the largest nodule. Interim History: 09/11 Followup visit on 09/08/18 for hypothyroidism. Lab still over correcting, TSH 0.03, free T4 1.53 (0.8-1.8), free T3 5.6 (2.3-4.2), and she is on levothyroxine 100 mcg. HPI: 06/13 New patient sent from Dr. Linda Zaragoza for multinodular goiter, and ultrasound shows right lobe 5.7 x2.3 x 1.7, with hypervascular nodules 14 x 13 x 18 mm, left lobe 5.2 x 1.4 x 1.7, with hypervascular also 14 mm nodule. She was on levothyroxine for almost long time, 15 years, stopped for 6 weeks and did thyroid scan with uptake, shows enlarged right thyroid lobe, with hot nodules in upper half, right thyroid, 6 hours 15.6%, 29 hours 29%, and now they decrease her levothyroxine from 150 since long time to 75, only she take 1/2 tablet. Lab in : Free T4 1.63 (0.8-1.8) and TSH 0.03, and back in TSH also suppressed, and in free T4 high, so always she is on hyper, ove rcorrected treatment. SUBJECTIVE: MEDICATIONS: Current Outpatient Medications Medication Instructions levothyroxine (SYNTHROID, LEVOXYL) 88 mcg, Oral, Every morning, on an empty stomach levothyroxine (Tirosint) 88 MCG capsule Daily before breakfast ALLERGIES: No Known Allergies Past Medical History: Diagnosis Date Goiter (CMS/HCC) Kanchan's disease (CMS/HCC) Hypothyroid (CMS/HCC) Nontoxic multinodular goiter (CMS/HCC) No past surgical history on file. REVIEW OF SYMPTOMS: 14 POINT OF SYSTEM REVIEWED AND NEGATIVE OBJECTIVE: Visit Vitals BP 160/72 Pulse 72 Resp 16 Ht 5' 6 Wt 182 lb BMI 29.38 kg/m Smoking Status Never BSA 1.96 m Physical Exam Constitutional: Appearance: Normal appearance. She is normal weight. HENT: Head: Normocephalic and atraumatic. Right Ear: External ear normal. Nose: Nose normal. Mouth/Throat: Pharynx: Oropharynx is clear. Eyes: Extraocular Movements: Extraocular movements intact. Pupils: Pupils are equal, round, and reactive to light. Cardiovascular: Rate and Rhythm: Normal rate and regular rhythm. Pulmonary: Effort: Pulmonary effort is normal. Abdominal: General: Abdomen is flat. Palpations: Abdomen is soft. Musculoskeletal: General: Normal range of motion. Skin: General: Skin is warm. Neurological: General: No focal deficit present. Mental Status: She is alert. Psychiatric: Mood and Affect: Mood normal. Behavior: Behavior normal. ASSESSMENT AND PLAN: Assessment/Plan Diagnoses and all orders for this visit: Autoimmune thyroiditis (CMS/HCC) - levothyroxine (Synthroid, Levoxyl) 88 MCG tablet; Take 1 tablet (88 mcg) by mouth in the morning.on an empty stomach. - T3, free; Future - T4, free; Future - TSH; Future - Vitamin D 25 hydroxy; Future We will continue with levothyroxine 88 mcg daily, we will check lab before next visit in 1 year andadjust Nontoxic multinodular goiter (CMS/HCC) - US thyroid; Future Last ultrasound had nodules both lobes 19 mm, we will order ultrasound next year in and had biopsy in 2019. Follow up in about 1 year (around 04/12/2025). documented in this encounter[facility] [id number] Miscellaneous Notes* Telephone Encounter - Ellie Kruger CMA - 03/26/2024 1:31 PM EDT ----- Message from Dr. Linda Zaragoza DO sent at 03/26/2023 6:49 PM EDT ----- Wellness * Telephone Encounter - Ellie Kruger CMA - 03/26/2024 1:31 PM EDT SUD[facility] Amilcar [facility] Note* Telephone Encounter - Ellie Kruger CMA - 03/26/2024 1:31 PM EDT ----- Message from Dr. Linda Zaragoza DO sent at 03/26/2023 6:49 PM EDT ----- Wellness [facility]11-01-2024 Telephone encounter Note* Telephone Encounter - Ellie Kruger CMA - 03/26/2024 1:31 PM EDT [facility]UD[facility] Am[facility]car [facility] Diagnosis Autoimmune thyroiditis (CMS/HCC)- Primary Nontoxic multinodular goiter (CMS/HCC) Nontoxic multinodular goiter documented in this encounter [facility] HealthcareEvaluation note* Diagnosis Abnormal wellness exam- Primary Hyperlipidemia, unspecified hyperlipidemia type Encounter for screening mammogram for malignant neoplasm of breast Age-related osteoporosis without current pathological fracture Kanchan's thyroiditis Chronic lymphocytic thyroiditis [facility] Diagnosis Age-related osteoporosis without current pathological fracture [facility] Diagnosis Hyperlipidemia, unspecified hyperlipidemia type [facility] Diagnosis Hyperlipidemia, unspecified hyperlipidemia type [facility]ructionsNot on filedocumented in this encounter [facility]ructionsNot on filedocumented in this encounter [facility] Summary Purpose Family History No Family [...] section and content) DATE CREATED AUTHOR 04/30/2020 [facility] DATE CREATED AUTHOR AUTHOR'S ORGANIZ ATION 07/04/2021 [facility] DATE CREATED AUTHOR AUTHOR'S ORGANIZ ATION 03/24/2022 [facility] DATE CREATED AUTHOR AUTHOR'S ORGANIZ ATION 04/13/2024 [facility] EPIC DATE CREATED AUTHOR AUTHOR'S ORGANIZ ATION 05/25/2024 [facility] DATE CREATED AUTHOR AUTHOR'S ORGANIZ ATION 05/26/2024 [facility] Care Teams (unrecognized sec tion and content) Team MemberRelationshipSpecialtyStart DateEnd Date Linda Zaragoza MD [address] [place] [address] PCP - GeneralInternal [id number]/13/24Team MemberRelationshipSpecialtyStart Date End Date Linda Zaragoza MD [address] [place] [address] PCP - GeneralInternal Lmnpcttt34/13/24Team MemberRelationshipSpecialtyStart Date End Date Linda Zaragoza DO [address] [place] [address] [facility] - [facility]21Te MemberRelationshipSpecialtyStart Date End Date Linda Zaragoza DO [address] [place] [address] PCP - [facility]04/05/21Team MemberRelationshipSpecialtyStart Date End Date Linda Zaragoza DO [address] [place] [address] PCP - [facility]04/05/21Te MemberRelationshipSpecialtyStart Date End Date Linda Zaragoza DO [address] [facility] [place] [address] PCP - [facility]04/05/21 Reason for Visit (unrecogniz ed section and content) ReasonCommentsThyroid ProblemFollow-upReasonCommentsMed Refill FOR RECORDS PERTAINING TO PATIENTS WHO ARE [...] BE BASED ON THE PRIMARY CLINICAL RECORDS. [facility]. provides no warranty or guarantee of the accuracy or completeness of information in this document.
[2025-03-30 17:59] LABS: Free T3 2.11 pg/mL (2.18-3.98); Thyroid Stimulating Hormone 2.410 uIU/mL (0.358-3.740)
== END 2025-03-30 16:18 | disposition home or self-care (01) ==
PROVIDERS: PCP Internal Medicine; Visit Provider Internal Medicine
DX: E06.3 Autoimmune thyroiditis (principal)
CPT/HCPCS: 36415; 84439; 84443; 84481